=== PATIENT | female | born 1950 | race Caucasian/White ===

== ENCOUNTER 2024-02-24 14:46 | Emergency (ER) | payer MEDICARE, SELFPAY ==
--- NOTE | ~2024-02-24 | XR_ITS ---
EXAMINATION: [id number] Exam Date/Time: 02/24/2024 15:26 ASSOCIATE PROFESSOR OF PSYCHOLOGY HISTORY: fell this morning hit side of bathtub, pain ant, mid Rt ribs Comparison: None available. RESULT: Lines, tubes, and devices: None. Lungs and pleura: Clear. Cardiothymic silhouette: Stable. Other: No acute upper abdominal finding. Mildly displaced transverse fracture of the right fifth ant erolateral rib. IMPRESSION: No acute cardiopulmonary process. Mildly displaced transverse fracture of the right fifth anterolateral rib. Reviewed, dictated and finalized at location K. CIATE PROFESSOR OF PSYCHOLOGY
[2024-02-24 14:56] VITALS: BP 124/91; PULSE 105; RESP 20; TEMP 36.3; O2SAT 98
--- NOTE | 2024-02-24 15:34 | ED.GENADULT ---
HPI - General Adult General Chief complaint: Fall Stated complaint: FALL/R SIDED PAIN Time Seen by Provider: 02/24/24 15:10 Source: patient, RN notes reviewed and old records reviewed Mode of arrival: ambulatory Limitations: no limitations History of Present Illness HPI narrative: 73 year old female who presents to [facility] with complaints of getting foot caught on air vent and fallin in her bathroom at 1100 today and hitting right anterior lateral chest on side of bathtub. Patient reports pain to area on right anterior lateral chest region with no bruising noted but reports increased pain with deep breathing and if sneezes or coughs and with movement of right arm,.Patient reports no pain to right hip or to lower right side of body. MD complaint: right lateral rib pain Onset (ago): day(s) (today at 1100 from fall) Location: chest (right lateral anterior chest) Severity scale (1-10): 5 Quality: aching Treatments prior to arrival: other (muscle relaxer, Ibuprofen and Tylenol) Related Data Home Medications Medication Instructions Recorded Confirmed alprazolam 0.25 mg tablet 0.25 mg PO DIRECTED 02/24/24 02/24/24 cyclobenzaprine 10 mg tablet 10 mg PO HS 02/24/24 02/24/24 fluoxetine 20 mg capsule 20 mg PO DAILY 02/24/24 02/24/24 fluoxetine 40 mg capsule 40 mg PO DAILY 02/24/24 02/24/24 Allergies Allergy/AdvReac Type Severity Reaction Status Date / Time No Known Allergies Allergy Verified 02/24/24 16:04 Review of Systems Review of Systems: CONSTITUTIONAL: Denies fever, chills, or sweats. EYES: Denies visual changes, redness, or discharge. ENT: Denies rhinorrhea, congestion, sore throat, or otalgia. CARDIOVASCULAR: Denies chest pain, palpitations, or edema.reports pain to right anterior lateral chest region from fall RESPIRATORY: Denies cough or dyspnea. GASTROINTESTINAL: Denies abdominal pain, nausea, vomiting, or diarrhea. GENITOURINARY: Denies dysuria or hematuria. SKIN: Denies rash or itching. MUSCULOSKELETAL: Denies back pain, joint pain, or myalgia. NEUROLOGIC: Denies headache, numbness, or weakness. PSYCHIATRIC: Positive for history of anxiety or depression. All systems reviewed & are unremarkable except as noted in HPI and below PMFSH Past Medical History Medical History (Updated 02/26/24 @ 11:25 by Sherry Bullard NP) Anxiety and depression Social History Social History (Updated 02/26/24 @ 11:19 by Sherry Bullard NP) Smoking status: Never smoker Alcohol intake: current Alcohol use details: social Substance use type: does not use Gender identity (if verbalized by the patient): Female Comments At time of signature, agree with nursing past medical, surgical, social and family history. There is no relevant family history pertinent to the presenting complaint Exam Narrative: GENERAL: Well-appearing, well-nourished, and in some acute distress related to pain to anterior lateral chest from fall. HEAD: Normocephalic, atraumatic. EYES: PERRLA and EOMI. ENT: Nares clear, no rhinorrhea or epistaxis. Mucous membranes moist. NECK: Supple.no lymphadenopathy CHEST: Clear to auscultation. No respiratory distress.[id number]% on room air,pain to lateral anterior right chest from fall. HEART: Regular rate and rhythm. No murmur heard. Normal peripheral pulses. ABDOMEN: Soft, nontender, nondistended, normal active bowel sounds. EXTREMITIES: Normal range of motion.bilateral foot edema. SKIN: Warm, dry, no rash. NEURO: No focal deficits. Alert and oriented x3. Course Course Emergency Course: Patient is aware of diagnosis, understands and agrees to treatment plan.? Anticipatory guidance given.? Patient agrees to follow-up as directed and is aware of reasons to seek care at the emergency department. Portions of this record may have been created with voice recognition software Level of Care: Express Care Visit Vital Signs Vital signs: Vital Signs Temperature 36.3 C L 02/24/24 14:56 Pulse Rate 105 H 02/24/24 14:56 Respiratory Rate 20 02/24/24 14:56 Blood Pressure 124/91 H 02/24/24 14:56 Pulse Oximetry 98 02/24/24 14:56 Oxygen Delivery Room Air 02/24/24 14:56 Temperature 36.3 C L 02/24/24 14:56 Pulse Rate 105 H 02/24/24 14:56 Respiratory Rate 20 02/24/24 14:56 Blood Pressure 124/91 H 02/24/24 14:56 Pulse Oximetry 98 02/24/24 14:56 Oxygen Delivery Room Air 02/24/24 14:56 Reviewed Medical Decision Making MDM Narrative Medical decision making narrative: Exam findings and imaging show no acute concerns or changes; patient is non-toxic appearing and is in no distress.? Patient is appropriate for outpatient treatment and follow-up Differential Diagnosis Differential Diagnosis: fall hitting right chest region, contusion to ribs, fracture right rib. Medical Records Medical records reviewed: Yes I reviewed the external patient's medical records. Vital Signs Vital Signs: Vital Signs Temperature 36.3 C L 02/24/24 14:56 Pulse Rate 105 H 02/24/24 14:56 Respiratory Rate 20 02/24/24 14:56 Blood Pressure 124/91 H 02/24/24 14:56 Pulse Oximetry 98 02/24/24 14:56 Oxygen Delivery Room Air 02/24/24 14:56 Temperature 36.3 C L 02/24/24 14:56 Pulse Rate 105 H 02/24/24 14:56 Respiratory Rate 20 02/24/24 14:56 Blood Pressure 124/91 H 02/24/24 14:56 Pulse Oximetry 98 02/24/24 14:56 Oxygen Delivery Room Air 02/24/24 14:56 Imaging Data Attestation: I personally reviewed and interpreted this imaging study as follows: My impression: mildly displaced transverse fracture right anterolateral 5th rib Radiologist's impression: Express [facility] [place] [address] XRay Report Signed Patient: Maris Lennon : 1950 MR#: [id number] Age: 73 Acct:[id number] Loc: [facility] ADM Date: 02/24/24Attending Dr: Ordering Physician: Sherry Bullard APRN Date of Service: 02/24/24 Procedure(s): XR ribs RT w PA CXR Accession Number(s): [id number] cc: Talat,Sherry Lewis APRN~ EXAMINATION: [id number] Exam Date/Time: 02/24/2024 15:26 EXHIBITIONS AND COLLECTIONS MANAGER HISTORY: fell this morning hit side of bathtub, pain ant, mid Rt ribs Comparison: None available. RESULT: Lines, tubes, and devices: None. Lungs and pleura: Clear. Cardiothymic silhouette: Stable. Other: No acute upper abdominal finding. Mildly displaced transverse fracture of the right fifth anterolateral rib. IMPRESSION: No acute cardiopulmonary process. Mildly displaced transverse fracture of the right fifth anterolateral rib. Reviewed, dictated and finalized at location K. BITIONS AND COLLECTIONS MANAGER Dictated By: Win Meek MD 02/24/24 1537 Signed By: <Electronically signed by Win Meek MD in OV> Critical Care Time Critical Care Time Critical Care Time: No Discharge Plan Discharge Clinical Impression: Right rib fracture Patient Disposition: Home, Self-Care Condition: Stable Instructions: Antibiotic Form Additional Instructions: Ice and heat to the area for 20-30 minutes Caution with lifting, bending, stooping, twisting Avoid pushing, pulling take muscle relaxants as directed--caution drowsiness and no driving or alcohol Anti-inflammatory medicine as directed--take with food He may take the muscle relaxant and anti-inflammatory at the same time Pain medicine as directed for severe pain--caution drowsiness-no driving or alcohol. If this medicine is a narcotic, you can become constipated. He may want to start a laxative right away. Follow-up with your PCP if not improving in 5-7 days If your symptoms persist, change or worsen significantly before you can contact your personal physician then please, without delay, go to the emergency department for further evaluation. Follow-up with PCP in 7-10 days or sooner if needed Follow up with PCP soon in regards to your blood pressure which is elevated above threshold for referral. Blood pressure above 120/80 may indicate pre-hypertension. 124/91 124/ Prescriptions: New acetaminophen-codeine 300-30 mg tablet 1 tablet PO Q6H PRN (Reason: pain) Qty: 10 0RF No Action fluoxetine 40 mg capsule 40 mg PO DAILY cyclobenzaprine 10 mg tablet 10 mg PO HS alprazolam 0.25 mg tablet 0.25 mg PO DIRECTED fluoxetine 20 mg capsule 20 mg PO DAILY Follow-up/Referrals: Talat,Collin [Other] Stand Alone Forms: Work/School Release IP Time of Disposition: 16:07 Quality Fenwick Coma Scale Eyes: Open Verbal: Oriented and Alert Motor: Follows Commands Cristina Coma Total Score: 15
== END 2024-02-24 16:14 | disposition home or self-care (01) ==
PROVIDERS: Emergency Provider Registered Nurse; PCP Physician Assistant
DX: S22.31XA Fracture of one rib, right side, initial encounter for closed fracture (principal); Z79.899 Other long term (current) drug therapy; W18.31XA Fall on same level due to stepping on an object, initial encounter
CPT/HCPCS: 71101; 99203; G0463

== ENCOUNTER 2024-03-16 14:58 | Outpatient (CLI) | payer MEDICARE, SELFPAY ==
--- NOTE | ~2024-03-16 | XR_ITS ---
[id number] Ordering provider: Camron Gilliland, PA History: . Fracture of one rib, right side, initial encounter for close . Comparison: None FINDINGS: BONES: No acute right rib fracture or fracture of the visualized osseous structures. LUNGS: No effusions or infiltrates. No pneumothorax. SOFT TISSUES: Normal. IMPRESSION: No right rib fracture . Reviewed, dictated and finalized at location A. INJECTOR AND APPLICATOR IMPRESSION: No right rib fracture .
== END 2024-03-16 14:59 | disposition home or self-care (01) ==
LOC: MICIMG 15:00
PROVIDERS: PCP Physician Assistant; Visit Provider Physician Assistant
DX: S22.31XA Fracture of one rib, right side, initial encounter for closed fracture (principal); X58.XXXA Exposure to other specified factors, initial encounter
CPT/HCPCS: 71101

== ENCOUNTER 2024-05-25 12:55 | Outpatient (CLI) | payer MEDICARE, SELFPAY ==
[2024-05-25 13:58] LABS: Alanine Aminotransferase 26 U/L (6-35); Albumin Level 3.9 g/dL (3.5-5.1); Alkaline Phosphatase 81 U/L (38-126); Amylase 59 U/L (30-110); Aspartate Amino Transferase 20 U/L (14-36); Bilirubin,Total 0.5 mg/dL (0.2-1.3); Lipase 95 U/L (23-300)
--- OUTSIDE RECORDS SUMMARY | 2024-05-25 14:49 | XMS_ITS | CONTINUITY OF CARE DOCUMENT ---
Author Name stephane calderón Address Unknown Organization [facility] Address [address] [address] [facility] [address] [place] [address] Phone [phone] Care Team Providers Care Graduate Internship Name Role Phone Jose BALBUENA, Jayy Unavailable CHARAN BALBUENA, RUNDA Unavailable CHARAN BALBUENA, RUNDA Unavailable [phone] PROBLEMS Condition Status Date Provider Notes HTN essential active Jayy Garcia MD CAD- normal echo and stress test 08/16 active 6 Jayy Garcia MD Former smoker active Jayy Garcia MD Shortness of breath- Normal ech, normal stress nuc 08/16 active Jayy Garcia MD COPD active Jayy Garcia MD Obesity active Jayy Garcia MD Osteoporosis active Jayy Garcia MD Leg edema- b/l venous insufficiency 08/16 active 08/11 Jayy Garcia MD ENCOUNTERS Date Type Provider Location Encounter Diag nosis - In-person encounter Office Visit Jayy Gacria MD [facility] - In-person encounter Office Visit Jayy Garcia MD [facility] - In-person encounter Office Visit Jayy Garcia MD [facility] CAD- normal echo and stress test 08/16Leg edema- b/l venous insufficiency 08/16 - In-person encounter Office Visit Jayy Garcia MD [facility] Former smokerShortness of breath- Normal ech, normal stress nuc 08/16COPDObesityOsteopor osisLeg edema- b/l venous insufficiency 08/16 VITAL SIGNS Date Observation Value Provider Body Mass Index (Ratio) 38.12 kg/m2 Pedro Garcia MD blood pressure, diastolic 85 mm[Hg] [facility] blood pressure, systolic 138 mm[Hg] [facility] oxygen saturation, oximetry 95 % [facility] pulse rate 96 /min [facility] respiratory rate E&M 16 /min Meme D adilene weight E&M 236.2 [lb_av] [facility] height E&M 66 [in_i] [facility] Body Mass Index (Ratio) 37.93 kg/m2 Pedro Garcia MD blood pressure, cuff size regular Cy adria [place] blood pressure, diastolic 80 mm[Hg] Cy adria [place] blood pressure, systolic 122 mm[Hg] Breana natalykimberly [place] oxygen saturation, oximetry 97 % Kenia [place] respiratory rate E&M 16 /min Keniarafita [place] pulse rate 70 /min Kenia Chonbel l weight E&M 235 [lb_av] Kenia Campbel l height E&M 66 [in_i] Kenia Campbel l Body Mass Index (Ratio) 37.60 kg/m2 Pedro Garcia MD blood pressure, diastolic 80 mm[Hg] Sulaiman Salas blood pressure, systolic 120 mm[Hg] Becca Salas oxygen saturation, oximetry 98 % [facility] E&[facility] 16 /min Tunde Salas pulse rate 82 /min Elsinore Salas weight E&M 233 [lb_av] Elsinore Salas height E&M 66 [in_i] Elsinore Birchleaf Body Mass Index (Ratio) 37.60 kg/m2 Pedro Garcia MD blood pressure, diastolic 86 mm[Hg] Sulaiman lea Salas blood pressure, systolic 122 mm[Hg] Becca last [place] oxygen saturation, oximetry 96 % Tunde [place] respiratory rate E&M 16 /min Tunde [place] pulse rate 83 /min Tunde [place] weight E&M 233 [lb_av] Tunde [place] height E&M 66 [in_i] Tunde [place]leaf blood pressure, resting Yes Alessia Salas ALLERGIES No Known Drug Allergies HISTORY OF MEDICATION USE Medication Status Instructions Dates Provider Indications Com ments FLUOXETINE HCL 40 MG ORAL CAPSULE active TK 1 C PO D 7 Tunde Salas #90, 90 days supply, Prescribed by ANALILIA NELSON, Filled 11/28/2017 ASPIRIN ADULT LOW DOSE 81 MG ORAL TABLET DELAYED RELEASE active One Tab By Mouth Daily 4 Jayy Garcia MD ZYRTEC ALLERGY 10 MG ORAL TABLET active take 1 tab once daily 4 Tunde Salas NEXIUM 20 MG ORAL CAPSULE DELAYED RELEASE active take 1 caps once daily 4 Tunde Salas LISINOPRIL-HYDR OCHLOROTHIAZIDE 20-25 MG ORAL TABLET active TK 1 T PO QD 7 Elsinore Salas #90, 90 days supply, Prescribed by ANALILIA NELSON, Filled 11/28/2017 ALPRAZOLAM 0.25 MG ORAL TABLET active TK 1 T PO BID PRN 9 Tunde Salas #60, 30 days supply, Prescribed by ANALILIA NELSON, Filled 06/16/2018 IBANDRONATE SODIUM 150 MG ORAL TABLET active TK 1 T PO Q MONTH 6 Elsinore Salas #3, 90 days supply, Prescribed by ANALILIA NELSON, Filled 07/24/2018 PROAIR HFA 108 (90 BASE) MCG/ACT INHALATION AEROSOL SOLUTION active INL 2 PFS PO QID PRN 9 Elsinore Salas #8.5, 25 days supply, Prescribed by ANALILIA NELSON, Kim 07/29/2018 SOCIAL HISTORY Date Observation Value Provider social history E&M S moking History: Destiney stoddard is a former smoker. Alex Mcgrathandrez smoking, year quit 2018 Meme Orosco is number of years as a smoker 50 a Meme De Jesus smoking history, total pack/day 1 Meme De Jesus cigarette use yes Meme De Jesus smoking status Former smoker Meme De Jesus social history reviewed E&M revi ewed - no changes required Alex Palmermackenzie social history E&M S moking History: Destiney stoddard is a former smoker. Jayy Garcia MD social history reviewed E&M revi ewed - no changes required Jayy Garcia MD smoking, year quit 2018 Kenia hernadez number of years as a smoker 50 a Kenia Shemar smoking history, total pack/day 1 Kenia Shemar cigarette use yes Kenia Hilario aguila smoking status Former smoker Kenia Chon trent social history reviewed E&M revi ewed - no changes required Jayy Garcia MD smoking, year quit 2018 Elsinore I ngram number of years as a smoker 50 a Elsinore Salas smoking history, total pack/day 1 Tunde Salas cigarette use yes Tunde Salas smoking status Former smoker Tunde Ingr am social history E&M S moking History: Destiney stoddard is a former smoker. Jayy Garcia MD social history reviewed E&M revi ewed - no changes required Jayy Garcia MD smoking, year quit 2018 Tunde I ngram number of years as a smoker 50 a Elsinore Salas smoking history, total pack/day 1 Elsinore Salas cigarette use yes Tunde Salas number of grandchildren Jayy Salas smoking status Former smoker Tunde Rausch am FUNCTIONAL STATUS Date Observation Value Provider HRA, CV Assess/Plan, Angina (inactive) Management Plan continue current therapy Alex Ahmedzai HRA, CV Assess/Plan, Angina (inactive) Management Plan continue current therapy Jayy Garcia MD HRA, CV Assess/Plan, Angina (inactive) Management Plan continue current therapy Jayy Garcia MD FAMILY HISTORY Family Member Condition First Degree Blood Relative No Known Rel ative INSURANCE PROVIDERS Payer name Policy type / Coverage type Bernice red democrat ID AARP MEDICARE ADVANTAGE HMO-POS HMO [id number] ADVANCE DIRECTIVES Name Date DISCUSSED - NO DECISION MADE TREATMENT PLAN Date Name Performer [id number],S, Mendy Leavitt obsmeyer [id number],S, Mendy Leavitt obsmeyer [id number],S, Mendy Leavitt obsmeyer [id number],S, Mendy Tree obsmeyer [id number],B, Alex Ahmedza i [id number],S, Alex Ahmedza i [id number],S, Alex Ahmedza i [id number],S, Alex Ahmedza i [id number],S, Alex Ahmedza i Telehealth Mendy Jacobsm eyer Telehealth Mendy Jacobsm eyer Telehealth Mendy Jacobsm eyer Telehealth Mendy Jacobsm eyer Cardiology Alex Ahmedzai Cardiology Alex Ahmedzai Cardiology Alex Ahmedzai Cardiology Alex Ahmedzai Cardiology Alex Ahmedzai Cardiology follow up Jayy sierra MD Cardiology follow up Jayy sierra MD Cardiology follow up Jayy sierra MD Cardiology follow up Jayy sierra MD Cardiology follow up Jayy sierra MD Cardiology Jayy Garcia MD Cardiology Jayy Garcia MD Cardiology Jayy Garcia MD Cardiology Jayy Garcia MD Cardiology Jayy Garcia MD Cardiology Jayy Garcia MD Cardiology Jayy Garcia MD Cardiology Jayy Garcia MD Cardiology Jayy Garcia MD Cardiology Jayy Garcia MD Cardiology: B P today: 122/86 Jayy Garcia MD Cardiology Jayy Garcia MD Date Name Complete Echo DLCO - 65571 FRC - 01778 FVC - 78322 Venous Doppler Bilat eral LE - Reflux Stress Regadenoson Complete Echo HISTORY OF PROCEDURES Procedure Date Procedure Name Provider Procedure Notes S tatus EKG Jayy Garcia MD completed Regadenoson, 4 units Jayy Garcia MD completed Cardiolite, 2 units Jayy Garcia MD completed SPECT Images Umer Pierson MD compl eted Stress EKG Kalia Walker MD complete d EKG Jayy Garcia MD completed
--- OUTSIDE RECORDS SUMMARY | 2024-05-25 14:49 | XMS_ITS | Clinical Summary ---
Author Organization [facility] Address [address] [address] Phone Care Team Providers Care Egg Trayer Name Role Phone Melany Mathur MD Primary Care Provider [phone] Allergies No known active allergies Medications Medication Sig Dispensed Refills Start Date End Date Status cetirizine (ZyrTEC ALLERGY) 10 MG tablet one tab daily 0 07/30/2017 Active esomeprazole (NEXIUM 24HR CLEAR MINIS) [address] capsule one tab daily 0 07/30/2017 Active lisinopril-hydroCHLORO thiazide (PRINZIDE,ZESTORETIC) 20-25 MG per tablet 1 tab by mouth daily 0 07/30/2017 Active ALPRAZolam (XANAX) 0.25 MG tablet 1 tab by mouth twice daily as needed 0 07/30/2017 Active FLUoxetine (PROzac) 40 MG capsule TK 1 C PO D 04/14/2019 Active aspirin 81 MG tablet Take 81 mg by mouth 1 (one) time each day Active Active Problems Problem Noted Date Diagnosed Date Chronic kidney disease stage 2 05/31/2020 Obesity associated disorder 05/31/2020 Essential (primary) hypertension 07/30/2017 Resolved Problems Problem Noted Date Diagnosed Date Resolved Date Edema of lower extremity 05/31/202005/2022 Other specified abnormal fin ding of blood chemistry 12/30/2017 05/31/2020 Other microscopic hematuria 12/30/2017 05/31/2020 Social History Tobacco Use Types Packs/Day Years Used Date Smoking Tobacco: Former Smokeless Tobacco: Never Tobacco Cessation:Counseling Given: Not Answered Alcohol Use Standard Drinks/Week Comments Yes 0 (1 standard drink = 0.6 oz pur e alcohol) occasionally Sex and Gender Information Value Date Recorded Sex Assigned at Not on file Gender Identity Not on file Sexual Orientation Not on file Last Filed Vital Signs Vital Sign Reading Time Taken Comments Blood Pressure 121/90 05/14/2022 4:25 PM PROJECT DESIGN ENGINEER Pulse 84 11/07/2020 12:10 PM CDT Temperature - - Respiratory Rate - - Oxygen Saturation - - Inhaled Oxygen Concentration - - Weight 102 kg (225 lb) 05/14/2022 4:25 PM PROJECT DESIGN ENGINEER Height 167.6 cm (5' 6 ) 05/14/2022 10:41 AM PROJECT DESIGN ENGINEER Body Mass Index 36.32 05/14/2022 10:41 AM PROJECT DESIGN ENGINEER Plan of Treatment Health Maintenance Due Date Last Done Comments Pneumococcal PPSV23/PCV13 65 + Years / High and Highest Risk (2 of 4 - PPSV23 or PCV20) 07/16/2018 05/21/2018 COVID-19 Vaccine ( season) 11/30/202311/2020, 06/02/2020 Influenza Vaccine (#1) 2023 Care Teams Egg Trayer Relationship Specialty Start Date End Date Melany Mathur MD [facility] [place] [address] PCP - General 07/07/18
--- OUTSIDE RECORDS SUMMARY | 2024-05-25 14:49 | XMS_ITS | Patient Health Summary ---
Author Organization [facility] Address [address] [place] [address] Care Team Providers Care Corn Popper Name Role Phone Melany Mathur MD Primary Care Provider Note from [facility],non-owned Affiliates and Associated Physician Practices is amultiple site organization consisting of ambulatory clinics and hospital sitesin [place], [place], [place] and [place]. This disclosure is being madepursuant to the Care Everywhere program and may not contain all information available regarding this patient. Last updated 17.[facility] Allergies No known active allergies Medications * Be aware that medications may not be up to date on this document. Alwaysverify current medications with the patient. * ALPRAZolam (XANAX) 0.25 MG tablet(Started 09/28/2020) Take 0.25 mg by mouth 2 times daily as needed * lisinopril-hydroCHLOROthiazide (PRINZIDE; ZESTORETIC) 20-25 MG tablet(Started 10/30/2020) Take 1 tablet by mouth once daily * FLUoxetine (PROZAC) 40 MG capsule(Started 02/03/2020) TK 1 C PO D * Esomeprazole Magnesium (NEXIUM PO) Take by mouth once daily * Cetirizine HCl (ZYRTEC ALLERGY PO) Take by mouth once daily * aspirin buffered (BUFFERIN LOW DOSE) 81 MG tablet Take 81 mg by mouth Active Problems Problem Noted Date Diagnosed Date Hepatitis C antibody test positive 11/21/2020 Edema of lower extremity 05/31/2020 Stage 2 chronic kidney disease 05/31/2020 Chronic obstructive pulmonary disease 08/11/2018 Former smoker 08/11/2018 Osteoporosis 08/11/2018 Shortness of breath 08/11/2018 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 Essential (primary) hypertension 07/30/2017 Immunizations * Covid Maria Ma primary monovalent 12+ yr 0.5mL(Given 07/07/2020, 06/02/2020) * PNEUMOCOCCAL PPSV23(Given 01/15/2020) * Pneumococcal Pcv13 Conj(Given 05/21/2018) * Zoster Hzv Vacc Recombinant Inj Im(Given 04/21/2020, 01/15/2020) Social History Tobacco Use Types Packs/Day Years Used Date Smoking Tobacco: Former Cigarettes Q uit: 05/29/2018 Smokeless Tobacco: Never Alcohol Use Standard Drinks/Week Comments Yes 0 (1 standard drink = 0.6 oz pur e alcohol) on occasion Sex and Gender Information Value Date Recorded Sex Assigned at Not on file Gender Identity Not on file Sexual Orientation Not on file Last Filed Vital Signs Vital Sign Reading Time Taken Comments Blood Pressure 143/87 11/21/2020 2:51 PM CDT Pulse 96 11/21/2020 2:51 PM CDT Temperature - - Respiratory Rate - - Oxygen Saturation 98% 11/21/2020 2:51 PM CDT Inhaled Oxygen Concentration - - Weight 105.1 kg (231 lb 12.8 oz) 11/21/2020 2:51 PM CDT Height 167.6 cm (5' 6 ) 11/21/2020 2:51 PM CDT Body Mass Index 37.41 11/21/2020 2:51 PM CDT Procedures * HEPATITIS B SURFACE ANTIBODY(Performed 11/21/2020) Performed for Chronic hepatitis C without hepatic coma (HCC) * HEPATITIS B SURFACE ANTIGEN W RFLX CONFIRMATION(Performed 11/21/2020) Performed for Chronic hepatitis C without hepatic coma (HCC) * HEPATITIS B CORE ANTIBODY TOTAL(Performed 11/21/2020) Performed for Chronic hepatitis C without hepatic coma (HCC) * HEPATITIS C RNA QUANTITATIVE(Performed 11/21/2020) Performed for Chronic hepatitis C without hepatic coma (HCC) * HEPATITIS C GENOTYPE(Performed 11/21/2020) Performed for Chronic hepatitis C without hepatic coma (HCC) * PT-INR [facility](Performed 11/21/2020) Performed for Chronic hepatitis C without hepatic coma (HCC) * COMPREHENSIVE METABOLIC PANEL(Performed 11/21/2020) Performed for Chronic hepatitis C without hepatic coma (HCC) * CBC W AUTO DIFFERENTIAL(Performed 11/21/2020) Performed for Chronic hepatitis C without hepatic coma (HCC) Results * PT-INR [facility] (11/21/2020 4:59 PM CDT) Pathologist [facility] PT 12.5 12.1 - 14.8 Seconds 11/21/2020 5:54 PM CDT [facility] INR 1.0 See Comment 11/21/2020 5:54 PM CDT [facility] Comment:The suggested therap eutic range for standard coumadin (warfarin) therapy is an INR of 2.0-3.0. For high-risk patients (Mechanical Mitral Valve Prosthesis, etc.), the suggested prophylactic therapeutic range is an INR of 2.5-3.5. Blood BLOOD SPECIMEN / Unknown Lab Venipuncture / Unknown 11/21/2020 4:59 PM CDT 11/21/2020 5:34 PM CDT Dipika Staton INTERNATIONAL LOGISTICS MANAGER-FIELD PARTY MANAGER LAB - COAGUL ATION ORDERABLES [facility] [address] [place] [id number], [facility] [phone] * HEPATITIS C GENOTYPE (11/21/2020 4:59 PM CDT) Pathologist [facility] Hepatitis C Genotype Indeterminate 11/27/2020 7:33 AM CDT [facility] ([facility]) Comment: Hepatitis C GENOTYPING IS INDETERMINATE. This test may be unsuccessful if the HCV RNA viral load is less than log 3.6 or 4000 IU per mL. Repeat testing may be appropriate if and when the viral load becomes greater than log 3.6 or 4000 IU/mL. In addition to low viral load, other conditions, such as PCR inhibitors, viral genetic variation, etc., may cause RT-PCR failure resulting in an indeterminate result. INTERPRETIVE INFORMATION: Hepatitis C Genotyping Hepatitis C Viral RNA is tested using reverse cd mixer helper polymerase chain reaction (RT-PCR) to amplify a specific portion of the 5' untranslated region (5' UTR) of the viral genome. The amplified nucleic acid is sequenced bi-directionally using dye-terminator chemistry ([employer]). Sequencing data is compared to a database of characterized sequences. Isolates of hepatitis C virus are grouped into six major genotypes (1-6). These genotypes are subtyped according to sequence characteristics. Due to high conservation of the 5' un-translated region of the HCV genome, this test has limitations in differentiating subtype 1a from 1b. Therefore, these subtypes will be reported as 1a or 1b. In rare instances, Type 6 virus may be misclassified as Type 1. This test was developed and its performance characteristics determined by [employer]. It has not been cleared or approved by the US Food and Drug Administration. This test was performed in a CLIA certified laboratory and is intended for clinical purposes. Performed By: [email or web address] [address] [place], [place] [id number] Ems Instructor: Sushma Ramirez MD Blood BLOOD SPECIMEN / Unknown Lab Venipuncture / Unknown 11/21/2020 4:59 PM CDT 11/21/2020 5:34 PM CDT Dipika Staton INTERNATIONAL LOGISTICS MANAGER-FIELD PARTY MANAGER LAB - CHEMIS TRY ORDERABLES [facility] ([facility]) [address] [place] [address], [facility] * HEPATITIS C RNA QUANTITATIVE (11/21/2020 4:59 PM CDT) [facility] Hepatitis C RNA PCR, Interp Not detected Not detected 11/23/2020 11:[address] [facility] Blood BLOOD SPECIMEN / Unknown Lab Venipuncture / Unknown 11/21/2020 4:59 PM CDT 11/21/2020 5:[address] [facility] - 11/23/2020 11:09 AM CDT The Hepatitis C viral (HCV) RNA analysis utilized a serum sample, real-time reverse cd mixer helper PCR, and is reported as Not Detected, Detected (<12 IU/mL), Quantity (IU/mL) or >30,000,000 IU/mL. The limit of quantitation of the assay is 12 IU/mL (100% of samples with this HCV RNA level were detected). The linear range is from 12 IU/mL to 30,000,000 IU/mL. Values less than 12 IU/mL are reported as Detected (<12 IU/mL). Values greater than 30,000,000 IU/mL are reported as >30,000,000 IU/mL. The detection/quantitation of HCV RNA in serum is based on the isolation of HCV RNA with reverse cd mixer helper of genomic HCV RNA followed by real-time PCR in the presence of an unrelated RNA internal control. The internal control ensures that RNA is isolated, and that no general significant inhibitors of the RT-PCR process are present. The analysis was performed using a U.S. FDA approved test methodology ([employer] Real Time HCV). Dipika Staton INTERNATIONAL LOGISTICS MANAGER-FIELD PARTY MANAGER LAB - CHEMIS TRY ORDERABLES [facility] [address] [place] [address], [facility] [phone] * CBC WITH DIFFERENTIAL (11/21/2020 4:59 PM CDT) WBC 8.3 3.5 - 10.5 10 3/uL 11/21/2020 5:50 PM CDT [facility] RBC 5.17 3.80 - 5.20 10 6/uL 11/21/2020 5:50 PM CDT [facility] Hemoglobin 13.9 12.0 - 15.6 g/dL 11/21/2020 5:50 PM CDT [facility] Hematocrit 44.7 35.0 - 45.0 % 11/21/2020 5:50 PM CDT [facility] MCV 86.5 80.7 - 98.3 fL 11/21/2020 5:50 PM CDT [facility] MCH 26.9 26.7 - 34.0 pg 11/21/2020 5:50 PM CDT [facility] MCHC 31.1 30.8 - 35.9 g/dL 11/21/2020 5:50 PM T [facility] Platelet Count 299 150 - 400 10 3/uL 11/21/2020 5:50 PM CDT [facility] RDW-SD 41.8 36.0 - 50.0 fL 11/21/2020 5:50 PM CDT [facility] RDW-CV 13.2 11.2 - 14.8 % 11/21/2020 5:50 PM [facility] MPV 11.6 9.4 - 12.9 fL 11/21/2020 5:50 PM [facility] nRBC Absolute 0.00 0 10 3/uL 11/21/2020 5:50 PM [facility] nRBC Auto 0.0 0 /100 WBC 11/21/2020 5:50 PM [facility] Neutrophils % 51.1 35.0 - 70.0 % 11/21/2020 5:50 PM [facility] Lymphocytes % 38.4 20.0 - 43.0 % 11/21/2020 5:50 PM [facility] Monocytes % 7.4 5.0 - 13.0 % 11/21/2020 5:50 PM [facility] Eosinophils % 2.1 0.0 - 6.0 % 11/21/2020 5:50 PM [facility] Basophil % 0.8 0.0 - 2.0 % 11/21/2020 5:50 PM [facility] Neutrophils Absolute 4.2 1.6 - 7.0 10 3/uL 11/21/2020 5:50 PM [facility] Lymphocyte Absolute 3.2 1.1 - 3.9 10 3/uL 11/21/2020 5:50 PM [facility] Monocytes Absolute 0.61 0.26 - 1.07 10 3/uL 11/21/2020 5:50 PM [facility] Eosinophils Absolute 0.17 0.00 - 0.47 10 3/uL 11/21/2020 5:50 PM [facility] Basophils Absolute 0.07 0.00 - 0.08 10 3/uL 11/21/2020 5:50 PM [facility] Immature Granulocytes % 0.2 0.0 - 1.0 % 11/21/2020 5:50 PM [facility] Immature Granulocytes Absolute 0.02 11/21/2020 5:50 PM [facility] Blood BLOOD SPECIMEN / Unknown Lab Venipuncture / Unknown 11/21/2020 4:59 PM CDT 11/21/2020 5:42 PM CDT Dipika Staton INTERNATIONAL LOGISTICS MANAGER-FIELD PARTY MANAGER LAB - HEMATO LOGY ORDERABLES [facility] [address] [place] [address], [facility] [phone] * (ABNORMAL) COMPREHENSIVE METABOLIC PANEL (11/21/2020 4:59 PM CDT) BUN 17 7 - 26 mg/dL 11/21/2020 6:12 PM [facility] Creatinine 1.23(H) 0.56 - 0.96 mg/dL 11/21/2020 6:12 PM [facility] Sodium 141 136 - 145 mmol/L 11/21/2020 6:12 PM [facility] Potassium 4.2 3.5 - 4.5 mmol/L 11/21/2020 6:12 PM [facility] Chloride 102 98 - 107 mmol/L 11/21/2020 6:12 PM [facility] CO2 27 22 - 29 mmol/L 11/21/2020 6:12 PM [facility] Glucose 82 70 - 115 mg/dL 11/21/2020 6:12 PM [facility] Calcium 9.9 8.4 - 10.2 mg/dL 11/21/2020 6:12 PM [facility] Protein Total 7.5 6.0 - 8.3 g/dL 11/21/2020 6:12 PM [facility] Albumin 3.9 3.4 - 5.0 g/dL 11/21/2020 6:12 PM [facility] Bilirubin Total 0.2 0.2 - 1.2 mg/dL 11/21/2020 6:12 PM [facility] Alkaline Phosphatase 93 40 - 150 U/L 11/21/2020 6:12 PM [facility] ALT 17 5 - 55 U/L 11/21/2020 6:12 PM [facility] AST 17 5 - 34 U/L 11/21/2020 6:12 PM [facility] Anion Gap 16 8 - 18 11/21/2020 6:12 PM [facility] BUN/Creatinine Ratio 14 7 - 23 11/21/2020 6:12 PM T [facility] Osmolality Calculated 293 270 - 300 mOsm/kg 11/21/2020 6:12 PM T [facility] Albumin/Globulin Ratio 1.1 1.1 - 2.3 11/21/2020 6:12 PM T [facility] eGFR by CKD-EPI 45(L) >=90 mL/min/1.7 3 m2 11/21/2020 6:12 PM CDT [facility] Blood BLOOD SPECIMEN / Unknown Lab Venipuncture / Unknown 11/21/2020 4:59 PM CDT 11/21/2020 5:41 PM CDT Dipika Staton INTERNATIONAL LOGISTICS MANAGER-FIELD PARTY MANAGER LAB - CHEMIS TRY ORDERABLES Performing Organization Address City/[facility]/ZIP Co de Phone Number [address] [address], [place] [phone] * HEPATITIS B SURFACE ANTIBODY (11/21/2020 4:59 PM CDT) Hepatitis B Virus Surface Antibody Non-react fariba Non-react fariba 11/21/2020 6:52 PM CDT [facility] Comment: < 8 mIU/mL Hepatitis B surface Antibody (HBsAb). Nonreactive for HBsAb - individual is considered not immune to Hepatitis B Virus infection. Hepatitis B Surface Antibody Quantitative 2.1 <8.0 mIU/mL 11/21/2020 6:52 PM T [facility] Comment: Hepatitis B Surface Antibody Numeric Result Interpretation: Nonreactive: <8.0 mIU/mL Indeterminate: 8.0 - 12.0 mIU/mL Reactive: >12.0 mIU/mL Blood BLOOD SPECIMEN / Unknown Lab Venipuncture / Unknown 11/21/2020 4:59 PM CDT 11/21/2020 5:34 PM CDT Dipika Staton INTERNATIONAL LOGISTICS MANAGER-FIELD PARTY MANAGER LAB - CHEMIS TRY ORDERABLES Performing Organization Address City/[facility]/ZIP Co de Phone Number [address] [address], [place] [phone] * HEPATITIS B CORE ANTIBODY (11/21/2020 4:59 PM CDT) HBc Antibody Total Non-reacti ve Non-reacti ve 11/21/2020 6:52 PM CDT [facility] Blood BLOOD SPECIMEN / Unknown Lab Venipuncture / Unknown 11/21/2020 4:59 PM CDT 11/21/2020 5:34 PM CDT Dipika Staton INTERNATIONAL LOGISTICS MANAGER-FIELD PARTY MANAGER LAB - CHEMIS TRY ORDERABLES [address] [address], [facility] [phone] * HEPATITIS B SURFACE ANTIGEN W RFLX CONFIRMATION (11/21/2020 4:59 PM CDT) Hepatitis B Virus Surface Antigen Non-reacti ve Non-reacti ve 11/21/2020 6:52 PM CDT [facility] Blood BLOOD SPECIMEN / Unknown Lab Venipuncture / Unknown 11/21/2020 4:59 PM CDT 11/21/2020 5:34 PM CDT Dipika Staton INTERNATIONAL LOGISTICS MANAGER-FIELD PARTY MANAGER LAB - CHEMIS TRY ORDERABLES [address] [address], [place] [phone] Care Teams Corn Popper Relationship Specialty Start Date End Date Melany Mathur MD [facility] [place] [id number] PCP - General 11/20/20
--- OUTSIDE RECORDS SUMMARY | 2024-05-25 14:50 | XMS_ITS | Data Portability ---
Author Organization [facility], Main Office Address [address] [place] [address] Assessment No assessment recorded. Plan of Treatment Reminders Order Date Submit Date Provider Last Modified By Organization Details Last Modified Time Details Appointments Follow Up 15 2024 11:00A XAVI Martin Not available Not available Not available Lab TSH, serum or plasma [address], [address] [place], [address], 09/10/2023 08:55:22 vitamin B12, serum 2023 024 [facility], [address] [place], [address], 09/03/2023 20:58:51 folate, serum [address], [address] [place], [address], 09/10/2023 08:55:22 CMP, serum or plasma 2023 024 [facility], [address] [place], [address], 09/03/2023 20:58:51 vitamin D, 25-hydrox y, total, serum [address], [address] [place], [address], 09/10/2023 08:55:22 T4, free, serum [address], [address] [facility], [place], [address], 09/10/2023 08:55:22 CBC w/ auto diff 2023 024 [facility], [address] [place], [address], 09/03/2023 20:58:52 Referral gastroent erologist referral - Fatty liver .Please eval and treat. Please call patient to schedule an appointme nt. Thank you 2023 024 [place] [address] [facility], [address], [address], [place], [address], 02/23/2024 08:53:00 Procedures None recorded. Surgeries None recorded. Imaging XR, ribs, unilatera l, w/ PA chest - 5th anterolat eral rib fracture . 2023 024 [facility], [address], [facility] [address], [place], [address], 03/16/2024 17:15:37 MAMMO, screening , digital, bilateral [address] [facility], [address] [place] [address] , [place], [address], 11/19/2023 08:44:46 Medication Orders prednison e 10 mg tablet 2024 025 [facility], [address] [place], [address], 04/20/2024 12:52:06 prednison e 20 mg tablet 2023 024 [facility] #88546, [address], [place], [id number], 03/17/2024 12:42:42 cyclobenz aprine 10 mg tablet 2023 024 [facility] #77093, [address], [place], [place], [id number], 01/26/2024 15:06:24 Prozac 40 mg capsule 2023 [facility] #39895, [address], [place], [place], [id number], 01/26/2024 15:08:44 fluoxetin e 20 mg capsule 2023 [facility] #69904, [address], [place], [place], [id number], 01/26/2024 15:08:57 fluoxetin e 60 mg tablet [email or web address] [place] [address] [facility] #42753, [address], [place], [place], [id number], 01/26/2024 15:06:37 Patient TargetsNo targets recorded. Patient Instructions Encounter Date Encounter Id Patient Instructions Last Modified By Organization Details Last Modified Time 09/03/2023 [id number] dementia rating scale-2* [email or web address] Not available 09/03/2023 16:51:00 Timed Up and Go test (TUG)* [email or web address] Not available 09/03/2023 16:51:10 depression screening* [email or web address] Not available 09/03/2023 16:51:14 alcohol misuse* [email or web address] Not available 09/03/2023 16:51:19 multi-dimensiona l health assessment questionnaire* [email or web address] Not available 09/03/2023 16:51:05 Personalized [facility] Plan and Screening Recommendations Advance Directives - Do you have one? Yes Advance Directives - Do we have your advance directive on file in your health record? Primary Prevention/Interven tion (prevents or decreases the chance of common diseases from occurring) Smoking Risk: Non Smoker Alcohol Misuse Screening: Negative Weight: Appropriate Overwei ght continue your current weight loss efforts try to lose 5% of your body weight try to lose 10% of your body weight Physical activity: Need more exercise/physical activity minimum of 10-20 minutes of activity that causes mild breathlessness/day minimum of 20-30 minutes activity that causes mild breathlessness/day Nutrition: Good Average Fall Risk (screened today): Low Intermediate Vaccines Pneumococcal: Ordered Recommended today Recommended today, but you have declined No further needed Influenza: Ordered Recommended today Recommended today, but you have declined Chronic Disease Risks Stroke: Low Risk I have no recommendations Heart Attack: Low risk I have no recommendations Clogging of the Arteries: Low risk I have no recommendations Diabetes: Low Risk I have no recommendations Secondary Prevention/Interven tion (detects treatable diseases before they may cause symptoms, disability, or ) Breast Cancer Screening with mammogram: Your next mammogram: Ordered Recommended today Cervical/Uterine/Ov silvana Cancer Screening: No screening necessary Osteoporosis Screening: No screening necessary Date Screening Last Performed: 12/27/23 Colon Cancer Screening: Colonoscopy Fecal Occult Blood Cologuard (DNA stool test) Date Screening Last Performed: 03/22 Eye Disease Screening: Ordered Recommended today Dementia Risk: Low I have no recommendations Depression Screening: Negative Active diagnosis, Continue current treatment plan [email or web address] Not available 09/02/2023 14:44:15 03/02/2024 [id number] showed her how t o take deep , slow breaths to keep lungs aerated, get BP rechecked . use a heating pad on low 20 min daily [email or web address] Not available 03/13/2024 16:23:07 Reason for Referral Flight Hostess Referral for Steatosis of liver Fatty liver .Please eval and treat. Please call patient to schedule an appointment. Thank you Referring Physician: Camron Gilliland, Family Medicine, Encounter Date: 01/26/2024 Results Created Date Observation Date Name Description Value Unit Range Abnormal Flag Note LastModifiedBy Organization Detail LastModifiedTime 09/22/19 24 09/22/2023 MAMMO , юлия cedeño, jesse al, dominic castillo No observ ation record ed. [email or web address] [facility] [address] [place], [address], 12/12/2023 13:06:36 03/16/20 24 03/16/2024 XR, ribs, unila teral , w/ PA chest No observ ation record ed. [email or web address] [facility] [address], [place], [address], 03/17/2024 12:29:31 04/08/19 25 04/08/2024 XR, chest , 2 view No observ ation record ed. [email or web address], [place], [address], 04/08/2024 11:56:12 Result Notes None recorded. Problems Name Problem SNOMED Code Status Onset Date Resolution Date Notes Provider Name and Address Organization Details Recorded Time Serum creatinine above reference range 636344065 Active Not Available [facility] 3 07:28:34 Gastroesop hageal reflux disease 976242112 Active Not Available [facility] 3 07:28:34 Hypertensi ve disorder 67324966 Active Not Available [facility] 3 07:28:34 Anxiety 73784134 Active Not Available [facility] 3 07:28:34 Hypertensi ve renal failure 91503424 Active Not Available [facility] 3 07:28:34 Essential hypertensi on 10103630 Active Not Available [facility] 3 07:28:34 Mixed anxiety and depressive disorder 559300317 Active 2022 Not Available [facility] 3 07:28:34 Injury of head 49300691 Active 2022 Not Available [facility] 3 07:28:34 Sprain of right wrist 2714491874445 9103 Active 2022 Not Available [facility] 3 07:28:34 Screening for malignant neoplasm of breast Active 2023 XAVI Rock [address], [place], [address] , [employer] 4 15:06:59 Fatigue 76416424 Active 2023 XAVI Rock [address], [place], [address] , [employer] 4 15:10:37 Tendinitis of left wrist region 9863415481517 9100 Active 2023 XAVI Rock [address], [address], [place], [address] , [employer] [facility] [employer] 4 15:14:52 Strain of left trapezius muscle 4046729691517 9109 Active 2023 XAVI Rock [address], [address], [place], [address] , [employer] [facility] 4 15:05:26 Steatosis of liver 896265200 Active 2023 XAVI Rock [address], [address], [place], [address] , [employer] [facility] [employer] [facility] 4 15:13:01 Fracture of right rib 4533609957769 4102 Active 2023 XAVI Rock [address], [place], [address] , [employer] [facility] 4 16:05:03 Gallstone 057340136 Active 2024 XAVI Rock [address], [address], [place], [address] , [employer] [facility] [employer] 5 16:34:06 Notes:Some problems listed i n Documents: #[id number], #[id number], #[id number] could not be added to this patient's chart. Please review these documents and add these problems to the patient's chart manually as needed. Problem Notes None recorded. Procedures Surgical History Date Name Laterality Status Provider Name and Address Organization Details Recorded Time 09/03/19 Medicare Wellness CPT Code, subsequent completed June CATALINA Maynard [facility] 09/02/2023 14:34:10 02/10/20 21 mammography completed Not Available [facility] 05/30/19 08:44:05 07/23/19 19 bone density scan completed Not Available [facility] 05/29/2022 08:44:05 Tubal Ligation completed Not Available [facility] 05/29/2022 08:44:05 Colonoscopy completed Not Available [employer] 05/29/2022 08:44:05 Imaging Results Imaging Date Name Status LastModified by Organiz ation Details LastModified Time 09/22/2023 MAMMO, screening, digital, bilateral completed [email or web address] [facility] [address], [place], [address], 12/12/2023 13:06:36 03/16/2024 XR, ribs, unilateral, w/ PA chest [email or web address] [address], [place], [address], 03/17/2024 12:29:31 04/08/2024 XR, chest, 2 view completed [address], [place], [address], 04/08/2024 11:56:12 Procedure Notes None recorded. Medical Equipment None Reported. Allergies No known drug allergies Medications Name Sig Start Date Stop Date Status Note LastModified by Organization Details LastModified Time fluoxetin e 40 mg capsule TAKE 1 CAPSULE BY MOUTH EVERY DAY active Not Available Not Available No t Available cyclobenz aprine 10 mg tablet TAKE 1 TABLET BY MOUTH EVERY DAY AT BEDTIME active Not Available Not Available No t Available prednison e 10 mg tablet Take 1 tablet every day by oral route in the morning for 30 days. 2024 active Not Available Not Available Not Avai lable Pneumovax -23 25 mcg/0.5 mL injection solution ADM 0.5 ML IM ONCE UTD 10/25 completed Not Available Not Available Not Available lisinopri l 20 mg-hydroc hlorothia zide 12.5 mg tablet Take 1 tablet every day by oral route. 2012 active Not Available Not Available Not Avai lable prednison e 20 mg tablet Take 2 tabs PO twice daily for 2 days; 1 tab PO twice daily for 5 days; 1/2 tab PO twice daily for 2 days; 1/2 tab PO once for 1 day. TAKE 2ND DOSE EVERYDAY AT NOON-10 DAY COURSE active Not Available Not Available No t Available Zithromax Z-Valente 250 mg tablet Take 2 TABLET EVERY DAY by oral route for 1 day. Than 1 tablet for 4 days 12/13 completed Not Available Not Available Not Available acetamino phen 300 mg-codein e 30 mg tablet 03/02 completed Did not work, pt takes regular tylenol Not Available Not Available Not Available ciproflox acin 250 mg tablet 05/21 completed Not Available Not Available Not Available triamcino lone acetonide 0.1 % topical cream APPLY 1 GRAM TOPICALL Y TO THE AFFECTED AREA TWICE DAILY 09/02 completed Not Available Not Available Not Available alprazola m 0.25 mg tablet Take 1 tablet twice a day by oral route. 2024 active Not Available Not Available Not Avai lable benzonata te 100 mg capsule TK 1 C PO Q 8 H PRF COUGH AND CONGESTI ON 07/24 completed Not Available Not Available Not Available oseltamiv ir 75 mg capsule TK 1 C PO Q 12 H TAT 07/24 completed Not Available Not Available Not Available lisinopri l 20 mg-hydroc hlorothia zide 25 mg tablet TAKE 1 TABLET BY MOUTH EVERY DAY active Not Available Not Available No t Available fluoxetin e 20 mg capsule TAKE 1 CAPSULE BY MOUTH EVERY DAY WITH 40MG CAPSULE active Not Available Not Available No t Available amoxicill in 875 mg-potass ium clavulana te 125 mg tablet TAKE 1 TABLET BY MOUTH TWICE DAILY 09/02 completed Not Available Not Available Not Available Vigamox 0.5 % eye drops INSTILL 1 DROP INTO THE SURGICAL EYE TID BEGINNIN G 2 DAYS PRIOR TO SURGERY. active Not Available Not Available No t Available ibandrona te 150 mg tablet Take 1 tablet every month by oral route. active Not Available Not Available No t Available metronida zole 1 % topical gel APPLY TO THE AFFECTED AREA(S) BY TOPICAL ROUTE ONCE DAILY ; RUB IN GENTLY AND COMPLETE LY active Not Available Not Available No t Available multivita min active Not Available Not Available Not Available Nexium 2014 active Not Available Not Available Not Avai lable Prilosec OTC 2012 active Not Available Not Available Not Avai lable ProAir HFA 90 mcg/actua tion aerosol inhaler INL 2 PFS PO QID PRN active Not Available Not Available No t Available Durezol 0.05 % eye drops INSTILL 1 DROP INTO THE SURGICAL EYE TID TO BEGIN AFTER SURGERY active Not Available Not Available No t Available fluoxetin e 60 mg tablet TAKE 1 TABLET BY MOUTH EVERY DAY IN THE MORNING 01/25 completed insuranc e not covering , would like to go to 40 mg with a 20 mg capsule. Not Available Not Available Not Available metronida zole 1 % topical gel with pump APPLY TOPICALL Y TO THE AFFECTED AREA EVERY DAY. RUB IN GENTLY AND COMPLETE LY active Not Available Not Available No t Available Ilevro 0.3 % eye drops,johanna pension INSTILL 1 DROP INTO THE SURGICAL EYE D. BEGIN 2 DAYS PRIOR TO SURGERY. active Not Available Not Available No t Available Shingrix (PF) 50 mcg/0.5 mL intramusc ular suspensio n, kit 10/25 completed Not Available Not Available Not Available Vitals Date Recorded Body height Body mass index (BMI) Body weight Body temperature Heart rate Oxygen saturation Oxygen saturation in Arterial blood by Pulse oximetry Respiratory rate Systolic blood pressure Diastolic blood pressure Provider Name and Address Organization Details Last Updated DateTime 4 167.64 cm 37.8 kg/m2 327249. 61 g 98.1 [degF] 81 /min 97 % 97 % 16 /min 126 mm[Hg] 88 mm[Hg] Martha García RN [facility] [employer] 4 14:56:04 Date Recorded Body height Body mass index (BMI) Body weight Body temperature Heart rate Oxygen saturation Oxygen saturation in Arterial blood by Pulse oximetry Systolic blood pressure Diastolic blood pressure Provider Name and Address Organization Details Last Updated DateTime 4 167.64 cm 38.3 kg/m2 227767. 39 g 98 [degF] 92 /min 98 % 98 % 124 mm[Hg] 76 mm[Hg] Martha García RN [facility] [employer] [facility] 4 14:25:38 Date Recorded Body height Body mass index (BMI) Body weight Body temperature Heart rate Oxygen saturation Oxygen saturation in Arterial blood by Pulse oximetry Systolic blood pressure Diastolic blood pressure Provider Name and Address Organization Details Last Updated DateTime 4 167.64 cm 38.4 kg/m2 307182. 98 g 98 [degF] 88 /min 97 % 97 % 136 mm[Hg] 94 mm[Hg] Martha García RN [facility] [employer] [facility] 4 15:39:23 Date Recorded Body height Body temperature Heart rate Oxygen saturation Oxygen saturation in Arterial blood by Pulse oximetry Systolic blood pressure Diastolic blood pressure Provider Name and Address Organization Details Last Updated DateTime 4 167.64 cm 98.1 [degF] 83 /min 97 % 97 % 128 mm[Hg] 84 mm[Hg] Martha García RN [facility] [employer] [facility] 4 12:36:09 Date Recorded Body height Body mass index (BMI) Body weight Body temperature Heart rate Oxygen saturation Oxygen saturation in Arterial blood by Pulse oximetry Systolic blood pressure Diastolic blood pressure Provider Name and Address Organization Details Last Updated DateTime 5 167.64 cm 37.5 kg/m2 648241. 59 g 97.7 [degF] 80 /min 98 % 98 % 118 mm[Hg] 86 mm[Hg] Cory Mensah RN [facility] [employer] [facility] 5 12:37:56 Social History Question Answer Notes LastModified by Organizat ion Details LastModified Time Tobacco Smoking Status Former Smoker 1ppd Not Available [facility] 05/29/2022 08:43:48 In The 14 Days Before Symptom Onset, Have You Had Close Contact With A Laboratory-confirm ed COVID-19 While That Case Was Ill? No [id number] Information not available 05/29/2022 In The 14 Days Before Symptom Onset, Have You Had Close Contact With A Person Who Is Under Investigation For COVID-19 While That Person Was Ill? No [id number] Information not available 05/29/2022 How Many Years Have You Smoked Tobacco? 40 [id number] Information not available 05/29/2022 Have You Recently Traveled Abroad? No [id number] Information not available 05/29/2022 Sex: Unknown Functional Status None recorded. Mental Status None recorded. Family History Nothing Reported Notes:per patient Medical History No medical history recorded. Gynecological HistoryNo gynecological history recorded. Obstetrics History GPAL:G 0 P 0 0 0 0 Immunizations Vaccine Type Date Status Note Provider Nam e and Address Organization Details Recorded Time Pneumococcal conjugate PCV 13 9 completed Not Available [facility] 10/16/2022 07:28:34 Past Encounters Encounter ID Performer Location Encounter Start Date Encounter Closed Date Diagnosis/Indication Diagnosis SNOMED-CT Code Diagnosis ICD10 Code Diagnosis Note [id number] [facility] Suzie mehta [facility] [place] [address] [address] 10/25/2020 00:00:00 10/25/2020 09:48:44 [id number] [facility] Suzie mehta [facility] [place] [address] 11/13/2020 00:00:00 11/13/2020 09:31:12 [id number] [facility] Suzie mehta [facility] [place] [address] 12/17/2021 00:00:00 12/17/2021 10:46:28 [id number] [facility] Suzie mehta [facility] [place] [address] 12/26/2021 00:00:00 12/26/2021 10:51:16 [id number] Melany Mathur MD [facility] Suzie mehta [address] [place] [address] [place] [address] 10/09/2022 14:50:12 10/09/2022 15:45:00 Injury of head 61771870 S09.90XA Sprain of right wrist 11 25287365 3054338 S63.501A continue gadiel wrap and NSAIDs and use ice [id number] X[facility]I Rock [facility] Suzie [address] [place] [address] [place] [address] 09/03/2023 14:23:36 09/03/2023 15:19:10 Adult health examination 251607883 Z00.00 Screening for disorder 879557092 Z13.9 Screening for malignant neoplasm of breast 476254302 Z12.39 Mixed anxi ety and depressive disorder 001761635 F41.8 Fatigue 76697496 R53.83 Tendinitis of left wrist region 9115024736 3965235 M67.834 Anxiety 00482020 F41.9 Essential hypertension 05293343 I10 Gastroesop hageal reflux disease 089770003 K21.9 [id number] XAVI Rock [facility] [address] [place] [address] 01/26/2024 14:05:08 01/26/2024 15:21:19 Anxiety 81497581 F41.9 Essential hypertension 16440498 I10 Gastroesop hageal reflux disease 544193608 K21.9 Mixed anxi ety and depressive disorder 606297876 F41.8 Strain of left trapezius muscle 7488703418 8262592 S29.012A Steatosis of liver 80108 1007 K76.0 [id number] X[facility]I Rock [address] [address] 03/02/2024 15:05:48 03/02/2024 16:18:29 Fracture of right rib 8476022552 4937769 S22.31XA right fifth anterolate ral rib , mildly displaced Anxiety 70969618 F41.9 Essential hypertension 37112888 I10 Gastroesop hageal reflux disease 687406877 K21.9 [id number] X[facility]I Rock [address] [address] 03/17/2024 12:21:44 03/17/2024 13:54:52 Fracture of right rib 9481951155 5094495 S22.31XA right fifth anterolate ral rib , mildly displaced Anxiety 05567538 F41.9 Essential hypertension 34180982 I10 Gastroesop hageal reflux disease 743254419 K21.9 Hypertensi ve renal failure 43655023 I12.0 [id number] X[facility]I Rock [address] [address] 04/20/2024 12:21:42 04/20/2024 12:56:55 Gallstone 839164476 K80.20 Anxiety 66461961 F41.9 Essential hypertension 45314427 I10 Gastroesop hageal reflux disease 272402199 K21.9 Mixed anxi ety and depressive disorder 954492183 F41.8 Health Concerns Section Related Observation LastModified by Organization Detai ls LastModified Time None Recorded Concern Status LastModified by Organization Details LastModified Time None Recorded Advance Directives Directive None Recorded Payers Encounter Date Sequence Insurance Name Policy Number Policy Harris Covered Member ID Harris Member ID Guarantor Name 09/03/2023 1 [facility] (MEDICARE REPLACEMENT/A DVANTAGE - HMO) [id number] Maris Lennon [id number] Maris Lennon 01/26/2024 1 [facility] (MEDICARE REPLACEMENT/A DVANTAGE - HMO) [id number] Maris Lennon [id number] Maris Lennon 03/02/2024 1 [facility] (MEDICARE REPLACEMENT/A DVANTAGE - HMO) [id number] Maris Lennon [id number] Maris Lennon 03/17/2024 1 [facility] (MEDICARE REPLACEMENT/A DVANTAGE - HMO) [id number] Maris Lennon [id number] Maris Lennon 04/20/2024 1 [facility] (MEDICARE REPLACEMENT/A DVANTAGE - HMO) [id number] Maris Lennon [id number] Maris Lennon Notes Date Note Type Note Provider Name and Address Organization Details Recorded Time 09/03/2023 text/html left handed , an d it is cramping debbie at night . XAVI Rock [address], [place], [address], [employer] 09/04/2023 10:59:56 01/26/2024 text/html left upper back strain . XAVI Rock [address], [place], [address], [employer] 02/22/2024 16:42:01 03/02/2024 text/html cracked 5th rib on right [facility] Rock [address], [place], [address], [employer] 03/13/2024 16:23:51 03/17/2024 text/html still hurts righ t rib lower [facility] [address], [place], [address], [facility] [employer] [facility] 04/03/2024 16:17:39 04/20/2024 text/html gallstones [facility] [address], [place], [address], [facility] [employer] [facility] [employer] [facility] 04/23/2024 20:30:46 OBGyn Episode No OBEpisode recorded.
--- OUTSIDE RECORDS SUMMARY | 2024-05-25 14:50 | XMS_ITS | Referral Summary ---
Author Organization [facility] Address [address] [facility] [place] [address] Care Team Providers Care Vigoureux Printer Name Role Phone Melany Mathur MD Primary Care Provider Source Comments [facility],non-owned Affiliates and Associated Physician Practices is amultiple site organization consisting of ambulatory clinics and hospital sitesin [place], [place], [place] and [place]. This disclosure is being madepursuant to the Care Everywhere program and may not contain all information available regarding this patient. Last updated 17.[facility] Allergies No known active allergies Medications * Be aware that medications may not be up to date on this document. Alwaysverify current medications with the patient. Medication Sig Dispensed Refills Start Date End Date Status ALPRAZolam (XANAX) 0.25 MG tablet Take 0.25 mg by mouth 2 times daily as needed 09/28/2020 Active lisinopril-hydroCHLORO thiazide (PRINZIDE; ZESTORETIC) 20-25 MG tablet Take 1 tablet by mouth once daily 10/30/2020 Active FLUoxetine (PROZAC) 40 MG capsule TK 1 C PO D 02/03/2020 Active Esomeprazole Magnesium (NEXIUM PO) Take by mouth once daily Active Cetirizine HCl (ZYRTEC ALLERGY PO) Take by mouth once daily Active aspirin buffered (BUFFERIN LOW DOSE) 81 MG tablet Take 81 mg by mouth Active Active Problems Problem Noted Date Diagnosed Date Hepatitis C antibody test positive 11/21/2020 Edema of lower extremity 05/31/2020 Stage 2 chronic kidney disease 05/31/2020 Chronic obstructive pulmonary disease 08/11/2018 Former smoker 08/11/2018 Osteoporosis 08/11/2018 Shortness of breath 08/11/2018 Atherosclerotic heart diseas e of [place] coronary artery without angina pectoris 08/03/2018 Essential (primary) hypertension 07/30/2017 Immunizations Name Administration Dates Next Due Bryon Lockhart primary monovalent 12+ yr 0.5mL ,06/02/2020 PNEUMOCOCCAL PPSV23 01/15/2020 Pneumococcal Pcv13 Conj 05/21/2018 Zoster Hzv Vacc Recombinant Inj Im 04/21/2020, Social History Tobacco Use Types Packs/Day Years [...] Mass Index 37.41 11/21/2020 2:51 PM CDT Plan of Treatment Not on file Goals Goal Patient Goal Type Associated Problems Recent Progress Patient-Stated? Author Medication Management General On track( 021 2:59 PM CDT) Abby Carias, RN Note: Expected end date: ongoing Interventions: Take all medications as prescribed Procedures Procedure Name Priority Date/Time Associated Diagnosis Comments COMPREHENSIVE METABOLIC PANEL Routine 11/21/2020 4:59 PM CDT Chronic hepatitis C without hepatic coma (HCC) HEPATITIS C GENOTYPE Routine 11/21/2020 4:59 PM CDT Chronic hepatitis C without hepatic coma (HCC) from Last 3 Months or Most Recently Relevant to Health Maintenance Results * HEPATITIS C GENOTYPE (11/21/2020 4:59 PM CDT) Hepatitis C Genotype Indeterminate 11/27/2020 7:33 AM CDT [facility] ([facility]) Comment: Hepatitis C GENOTYPING IS INDETERMINATE. [...] C Viral RNA is tested using reverse double backer polymerase chain reaction (RT-PCR) to amplify a specific portion of the 5' untranslated region (5' UTR) of the viral genome. The amplified nucleic acid is sequenced bi-directionally using dye-terminator chemistry ([employer]). Sequencing data is compared to a database [...] developed and its performance characteristics determined by [employer]. It has not been cleared or approved by the US Food and Drug Administration. This test was performed in a CLIA certified laboratory and is intended for clinical purposes. Performed By: [facility] [address] [place] [address] Self Pay Collector: Sushma Ramirez MD Blood BLOOD SPECIMEN / Unknown Lab Venipuncture / Unknown 11/21/2020 4:59 PM CDT 11/21/2020 5:34 PM CDT Dipika Staton CANDY DIPPER-FIREPOT OPERATOR AND TENDER LAB - CHEMIS TRY ORDERABLES [facility] ([facility]) [address] [place] [address], [facility] * (ABNORMAL) COMPREHENSIVE METABOLIC PANEL (11/21/2020 4:59 PM CDT) BUN 17 7 - 26 mg/dL 11/21/2020 6:12 PM [facility] Creatinine 1.23(H) 0.56 - 0.96 mg/dL 11/21/2020 6:12 PM [facility] Sodium 141 136 - 145 mmol/L 11/21/2020 6:12 PM [facility] Potassium 4.2 3.5 - 4.5 mmol/L 11/21/2020 6:12 PM [facility] Chloride 102 98 - 107 mmol/L 11/21/2020 6:12 PM [facility] CO2 27 22 - 29 mmol/L 11/21/2020 6:12 PM [facility] Glucose 82 70 - 115 mg/dL 11/21/2020 6:12 PM [facility] Calcium 9.9 8.4 - 10.2 mg/dL 11/21/2020 6:12 PM [facility] Protein Total 7.5 6.0 - 8.3 g/dL 11/21/2020 6:12 PM [facility] Albumin 3.9 3.4 - 5.0 g/dL 11/21/2020 6:12 PM [facility] Bilirubin Total 0.2 0.2 - 1.2 mg/dL 11/21/2020 6:12 PM [facility] Alkaline Phosphatase 93 40 - 150 U/L 11/21/2020 6:12 PM [facility] ALT 17 5 - 55 U/L 11/21/2020 6:12 PM [facility] AST 17 5 - 34 U/L 11/21/2020 6:12 PM [facility] Anion Gap 16 8 - 18 11/21/2020 6:12 PM [facility] BUN/Creatinine Ratio 14 7 - 23 11/21/2020 6:12 PM [facility] Osmolality Calculated 293 270 - 300 mOsm/kg 11/21/2020 6:12 PM [facility] Albumin/Globulin Ratio 1.1 1.1 - 2.3 11/21/2020 6:12 PM CDT [facility] eGFR by CKD-EPI 45(L) >=90 mL/min/1.7 3 m2 11/21/2020 6:12 PM CDT [facility] LABORATORY [facility] Blood BLOOD SPECIMEN / Unknown Lab Venipuncture / Unknown 11/21/2020 4:59 PM CDT 11/21/2020 5:41 PM CDT Dipika Staton CANDY DIPPER-FIREPOT OPERATOR AND TENDER LAB - CHEMIS TRY ORDERABLES [facility] [address] [place] [address], [facility] [phone] from Last 3 Months or Most Recently Relevant to Health Maintenance Care Teams Vigoureux Printer Relationship Specialty Start Date End Date Melany Mathur MD [address] [place] [address] [address] [place] [phone] PCP - General 11/20/20
--- OUTSIDE RECORDS SUMMARY | 2024-05-25 14:50 | XMS_ITS | Clinical Summary ---
Author Organization [employer] [facility] Address [address] [facility] [place] [address] Care Team Providers Care Telephone Instrument Supervisor Name Role Phone Melany Mathur MD Primary Care Provider [phone] Source Comments [facility],non-owned Affiliates and Associated Physician Practices is amultiple site organization consisting of ambulatory clinics and hospital sitesin [place], [place], [place] and [place]. This disclosure is being madepursuant to the Care Everywhere program and may not contain all information available regarding this patient. Last updated 17.[employer] [facility] Allergies No known active allergies Medications * [...] breath 08/11/2018 Atherosclerotic heart diseas e of [place] coronary artery without angina pectoris 08/03/2018 Essential [...] 11/21/2020 2:51 PM CDT Plan of Treatment Health Maintenance Due Date Last Done Comments BONE DENSITY TESTING 1950 COLOGUARD (AGES 45-75) - COLON CA SCREENING 1952 COLON MONITORING 1952 COLONOSCOPY - COLON CA SCREENING 1952 CT COLONOGRAPHY - COLON CA SCREENING 1952 Colorectal Cancer Screening 1952 FIT - COLON CA SCREENING 1952 FLEX SIG - COLON CA SCREENING 1952 MAMMOGRAM 1952 DTAP/TDAP/TD VACCINES (1 - Tdap) 1971 Respiratory Syncytial Virus (RSV) Vaccine Pt: or over 60 yrs (1 - Risk 60-74 years 1-dose series) 2012 SCREENING FOR DIABETES 11/22/2023 11/21/2020 COVID-19 VACCINE ( season) 2023 07/07/2020, 06/02/2020 INFLUENZA VACCINE (#1) 2023 DEPRESSION SCREENING 03/31/2024 MEDICARE AWV CALENDAR YEAR 2024 PNEUMOCOCCAL VACCINE 50+ Completed 01/15/2020, 05/02 ZOSTER VACCINE Completed 04/21/2020, 01/15/2020 HEPATITIS C SCREENING Completed 11/21/2020 , 11/21/2020, 11/21/2020, Additional history exists HEPATITIS B VACCINE Aged Out No longe r eligible based on patient's age to complete this topic HIB VACCINE Aged Out No longer eligi ble based on patient's age to complete this topic HPV VACCINE Aged Out No longer eligi ble based on patient's age to complete this topic MENINGOCOCCAL (Group B) VACCINE Aged Out No longer eligible based on patient's age to complete this topic MENINGOCOCCAL VACCINE Aged Out No nicko nisreen eligible based on patient's age to complete this topic Goals Goal Patient Goal Type Associated Problems [...] HEPATITIS C GENOTYPE (11/21/2020 4:59 PM CDT) [facility] Signature Hepatitis C Genotype Indeterminate 11/27/2020 7:33 AM CDT [facility] ([facility]) Comment: Hepatitis C GENOTYPING IS INDETERMINATE. This [...] C Viral RNA is tested using reverse corner trimmer operator polymerase chain reaction (RT-PCR) to amplify a specific portion of the 5' untranslated region (5' UTR) of the viral genome. The amplified nucleic acid is sequenced bi-directionally using dye-terminator chemistry ([employer]). Sequencing data is compared to a database [...] developed and its performance characteristics determined by [employer]. It has not been cleared or approved by the US Food and Drug Administration. This test was performed in a CLIA certified laboratory and is intended for clinical purposes. Performed By: [facility] [employer] - is now [employer] [address] [place] [address] Grinder And Honer Operator Automatic: Sushma Ramirez MD Blood BLOOD SPECIMEN / Unknown Lab Venipuncture / Unknown 11/21/2020 4:59 PM CDT 11/21/2020 5:34 PM CDT Dipika Staton AUTOMATION TEST DEVELOPER-PLANNING DIVISION SUPERINTENDENT LAB - CHEMIS TRY ORDERABLES [facility] ([facility]) [address] [place] [address] * (ABNORMAL) COMPREHENSIVE METABOLIC PANEL (11/21/2020 4:59 PM CDT) [facility] Signature BUN 17 7 - 26 mg/dL 11/21/2020 6:12 PM CDT [facility] LABORATORY [facility] Creatinine 1.23(H) 0.56 - 0.96 mg/dL 11/21/2020 6:12 PM CDT [facility] Sodium 141 136 - 145 mmol/L 11/21/2020 6:12 PM CDT [facility] Potassium 4.2 3.5 - 4.5 mmol/L 11/21/2020 6:12 PM [facility] Chloride 102 98 - 107 mmol/L 11/21/2020 6:12 PM [facility] CO2 27 22 - 29 mmol/L 11/21/2020 6:12 PM [facility] Glucose 82 70 - 115 mg/dL 11/21/2020 6:12 PM [facility] Calcium 9.9 8.4 - 10.2 mg/dL 11/21/2020 6:12 PM [facility] Protein Total 7.5 6.0 - 8.3 g/dL 11/21/2020 6:12 PM [facility] Albumin 3.9 3.4 - 5.0 g/dL 11/21/2020 6:12 PM [facility] Bilirubin Total 0.2 0.2 - 1.2 mg/dL 11/21/2020 6:12 PM [facility] Alkaline Phosphatase 93 40 - 150 U/L 11/21/2020 6:12 PM [facility] ALT 17 5 - 55 U/L 11/21/2020 6:12 PM [facility] AST 17 5 - 34 U/L 11/21/2020 6:12 PM [facility] Anion Gap 16 8 - 18 11/21/2020 6:12 PM [facility] BUN/Creatinine Ratio 14 7 - 23 11/21/2020 6:12 PM [facility] Osmolality Calculated 293 270 - 300 mOsm/kg 11/21/2020 6:12 PM [facility] Albumin/Globulin Ratio 1.1 1.1 - 2.3 11/21/2020 6:12 PM [facility] eGFR by CKD-EPI 45(L) >=90 mL/min/1.7 3 m2 11/21/2020 6:12 PM [facility] Blood BLOOD SPECIMEN / Unknown Lab Venipuncture / Unknown 11/21/2020 4:59 PM CDT 11/21/2020 5:41 PM T Dipika Staton AUTOMATION TEST DEVELOPER-PLANNING DIVISION SUPERINTENDENT LAB - CHEMIS TRY ORDERABLES [facility] [address] [place] [address], [facility] [phone] from Last 3 Months or Most Recently Relevant to Health Maintenance Care Teams Telephone Instrument Supervisor Relationship Specialty Start Date End Date Melany Mathur MD [address] [place] [address] [address] [place] [phone] PCP - General 11/20/20
== END 2024-05-25 12:56 | disposition home or self-care (01) ==
PROVIDERS: PCP Physician Assistant; Visit Provider Surgery
DX: K80.10 Calculus of gallbladder with chronic cholecystitis without obstruction (principal)
CPT/HCPCS: 36415; 80076; 82150; 83690

== ENCOUNTER 2024-06-02 00:05 | Day surgery (SDC) | payer MEDICARE, SELFPAY ==
[2024-05-20 09:33] VITALS: BMI 38.1
--- NOTE | 2024-05-20 09:44 | PC.NURSE ---
Report to the Outpatient Waiting Room, entrance under the green pavilion located off [facility], at time __0630am on date __06/02/24 . Planned Procedure Time: __0830am .? Time changes happen often and if your time is changed the preop area will call you the afternoon before. - You and your visitor will be asked to self-screen and do not enter if you have any COVID symptoms. Please call surgeon if you need to reschedule. - A mask is optional within the hospital at this time. Patients may have clear liquids (water, carbonated beverages, clear teas, apple juice) until 3 hours prior to surgery with a maximum of 20 ounces. - No food from midnight until time of surgery and no smoking, or chewing tobacco (or any form of nicotine). No chewing gum, candy or mints. (0530am) Take only the following medications with a SIP of water on the morning of surgery: ___Tylenol if needed, alprazolam if needed DO NOT STOP ANY OF YOUR OTHER PRESCRIPTION MEDICATIONS PRIOR TO SURGERY EXCEPT THE FOLLOWING Hold all vitamins and supplements for 3 days per anesthesiologist. Medications to discontinue per physician ___None Date to take last dose__None Please no make-up, nail german, hairspray, perfume, deodorant, or body powder the day of surgery.? No jewelry (including any body piercings) or valuables the day of surgery, leave them at home.? Please take a shower or bath the night before, or the morning of, surgery with an antibacterial soap.? Wear comfortable, loose fitting clothing.? - Jewelry must be removed prior to entering the operating room.? Rings and piercings that are not removed may be cut off. - The hospital will not accept responsibility for valuables.? - Please leave all valuables, including medications, at home the day of surgery. If you are going home after surgery, a licensed ross carrier driver must drive you home.? - NO public transportation without another adult if you receive anesthesia. - We recommend that an adult stay with you for 24 hours following discharge. - We also recommend that you do not drive, make important decision, drink alcoholic beverages, or take any drugs that were not prescribed by your health care provider for at least 24 hours after your discharge time. Follow any additional instructions given to you from your surgeon. Telephone instructions given to ___Patient and asked if any additional questions and then verbalized understanding. Patient advised to call surgeon office or pre surgery nurse liaison [phone] if any additional questions.
[2024-06-02] VITALS (9 sets, daily range): BP systolic 120–142; BP diastolic 56–87; PULSE 66–74; RESP 17–22; TEMP 36.3–36.5; O2SAT 93–100
--- OUTSIDE RECORDS SUMMARY | 2024-06-02 00:08 | XMS_ITS | CONTINUITY OF CARE DOCUMENT ---
Author Name stephane calderón Address Unknown Organization [facility] Address [address] [facility] [address] [place] [address] Phone [phone] Care Team Providers Care Motor Runner Name Role Phone Jose BALBUENA, Jayy Unavailable CHARAN BALBUENA, RUNDA Unavailable [phone] CHARAN BALBUENA, RUNDA Unavailable PROBLEMS Condition Status Date Provider Notes HTN [...] nosis - In-person encounter Office Visit Jayy Garcia MD [facility] - In-person encounter Office Visit Jayy Garcia MD [facility] - In-person encounter Office Visit Jayy Garcia MD [facility] CAD- normal echo and stress test 08/16Leg edema- b/l venous insufficiency 08/16 - In-person encounter Office Visit Jayy Garcia MD [facility] Former smokerShortness of breath- Normal ech, normal stress nuc 08/16COPDObesityOsteopor osisLeg edema- b/l venous insufficiency 08/16 VITAL SIGNS Date Observation Value Provider Body Mass Index (Ratio) 38.12 kg/m2 Pedro Garcia MD blood pressure, diastolic 85 mm[Hg] [facility] blood pressure, systolic 138 mm[Hg] [facility] oxygen saturation, oximetry 95 % [facility] pulse rate 96 /min [facility] respiratory rate E&M 16 /min Meme D adilene weight E&M 236.2 [lb_av] [facility] height E&M 66 [in_i] [facility] Body Mass Index (Ratio) 37.93 kg/m2 Pedro [...] Becca Salas oxygen saturation, oximetry 98 % [facility] E&M 16 /min [place] Salas pulse rate 82 /min [place] Salas weight E&M 233 [lb_av] [place] Slaas height E&M 66 [in_i] [facility] [place] Body Mass Index (Ratio) 37.60 kg/m2 Pedro Garcia MD blood pressure, diastolic 86 mm[Hg] Sulaiman lea Salas blood pressure, systolic 122 mm[Hg] Becca last [place] oxygen saturation, oximetry 96 % [facility] [place] respiratory rate E&M 16 /min [facility] [place] pulse rate 83 /min [facility] [place] weight E&M 233 [lb_av] [facility] [place] height E&M 66 [in_i] [facility] [place] blood pressure, resting Yes Alessia Salas ALLERGIES [...] active TK 1 T PO QD 7 [place] Salas #90, 90 days supply, Prescribed by ANALILIA NELSON, Filled 11/28/2017 ALPRAZOLAM 0.25 MG ORAL TABLET active TK 1 T PO BID PRN 9 [place] Salas #60, 30 days supply, Prescribed by ANALILIA NELSON, Filled 06/16/2018 IBANDRONATE SODIUM 150 MG ORAL TABLET active TK 1 T PO Q MONTH 6 Tunde Salas #3, 90 days supply, Prescribed by ANALILIA NELSON, Filled 07/24/2018 PROAIR HFA 108 (90 BASE) MCG/ACT INHALATION AEROSOL SOLUTION active INL 2 PFS PO QID PRN 9 Elliston Salas #8.5, 25 days supply, Prescribed by [...] Jayy Garcia MD smoking, year quit 2018 [place] I ngram number of years as a smoker 50 a Elliston Salas smoking history, total pack/day 1 Tunde Salas cigarette use yes Tunde Salas smoking status Former smoker Tunde Ingr am social history E&M S moking History: Destiney stoddard is a former smoker. Jayy Garcia MD social history reviewed E&M revi ewed - no changes required Jayy Garcia MD smoking, year quit 2018 [place] I ngram number of years as a smoker 50 a Tunde Salas smoking history, total pack/day 1 [place] Salas cigarette use yes Tunde Salas number [...] Payer name Policy type / Coverage type [place] red libertarian ID AARP MEDICARE ADVANTAGE HMO-POS HMO [id number] ADVANCE DIRECTIVES Name Date DISCUSSED - NO DECISION MADE TREATMENT PLAN Date Name Performer [id number],S, Mendy Leavitt obsmeyer [id number],S, Mendy Leavitt obsmeyer [id number],S, Mendy Leavitt obsmeyer [id number],S, Mendy Tree obsmeyer [id number],B, Alex Ahmedza i [id number],S, Alex Ahmedza i [id number],S, Alex Ahmedza i [id number],S, Alex Ahmedza i [id number],S, Alex Ahmedza i Telehealth Mendy Jacobsm eyer [...] MD Date Name Complete Echo DLCO - 71858 FRC - 13767 FVC - 16217 Venous Doppler Bilat eral LE - Reflux [...]
--- OUTSIDE RECORDS SUMMARY | 2024-06-02 00:08 | XMS_ITS | Clinical Summary ---
Author Organization [facility] Address [address] [facility] [place] [address] Care Team Providers Care Sales Account Coordinator Name Role Phone Melany Mathur MD Primary Care Provider [phone] Source Comments [facility],non-owned Affiliates and Associated Physician Practices is amultiple site organization consisting of ambulatory clinics and hospital sitesin [place], [place], [place] and [place]. This disclosure is being madepursuant to the Care Everywhere program and may not contain all information available regarding this patient. Last updated 17.[facility] Allergies No known active allergies Medications * [...] breath 08/11/2018 Atherosclerotic heart diseas e of [place] coronary artery without angina pectoris 08/03/2018 Essential [...] HEPATITIS C GENOTYPE (11/21/2020 4:59 PM CDT) [facility] Signature Hepatitis C Genotype Indeterminate 11/27/2020 7:33 AM CDT [facility] ([facility]) Comment: Hepatitis C GENOTYPING IS INDETERMINATE. This [...] C Viral RNA is tested using reverse ciaio lumite injector polymerase chain reaction (RT-PCR) to amplify a specific portion of the 5' untranslated region (5' UTR) of the viral genome. The amplified nucleic acid is sequenced bi-directionally using dye-terminator chemistry ([employer]). Sequencing data is compared to a database [...] developed and its performance characteristics determined by [employer]. It has not been cleared or approved by the US Food and Drug Administration. This test was performed in a CLIA certified laboratory and is intended for clinical purposes. Performed By: [facility] [employer] [address] [place] [address] Certified Nurse Operating Room: Sushma Ramirez MD Blood BLOOD SPECIMEN / Unknown Lab Venipuncture / Unknown 11/21/2020 4:59 PM CDT 11/21/2020 5:34 PM CDT Dipika Staton MOTORCYCLE POLICE-MANAGER CIVIL LAB - CHEMIS TRY ORDERABLES [facility] ([facility]) [address] [place] [address] * (ABNORMAL) COMPREHENSIVE METABOLIC PANEL (11/21/2020 4:59 PM CDT) [facility] Signature BUN 17 7 - 26 mg/dL 11/21/2020 6:12 PM CDT [facility] LABORATORY [facility] Creatinine 1.23(H) 0.56 - 0.96 mg/dL 11/21/2020 6:12 PM CDT [facility] Sodium 141 136 - 145 mmol/L 11/21/2020 6:12 PM CDT [facility] Potassium 4.2 3.5 - 4.5 mmol/L 11/21/2020 6:12 PM [facility] Chloride 102 98 - 107 mmol/L 11/21/2020 6:12 PM [facility] CO2 27 22 - 29 mmol/L 11/21/2020 6:12 PM [facility] Glucose 82 70 - 115 mg/dL 11/21/2020 6:12 PM [facility] Calcium 9.9 8.4 - 10.2 mg/dL 11/21/2020 6:12 PM [facility] Protein Total 7.5 6.0 - 8.3 g/dL 11/21/2020 6:12 PM [facility] Albumin 3.9 3.4 - 5.0 g/dL 11/21/2020 6:12 PM [facility] Bilirubin Total 0.2 0.2 - 1.2 mg/dL 11/21/2020 6:12 PM [facility] Alkaline Phosphatase 93 40 - 150 U/L 11/21/2020 6:12 PM [facility] ALT 17 5 - 55 U/L 11/21/2020 6:12 PM [facility] AST 17 5 - 34 U/L 11/21/2020 6:12 PM [facility] Anion Gap 16 8 - 18 11/21/2020 6:12 PM [facility] BUN/Creatinine Ratio 14 7 - 23 11/21/2020 6:12 PM [facility] Osmolality Calculated 293 270 - 300 mOsm/kg 11/21/2020 6:12 PM [facility] Albumin/Globulin Ratio 1.1 1.1 - 2.3 11/21/2020 6:12 PM [facility] eGFR by CKD-EPI 45(L) >=90 mL/min/1.7 3 m2 11/21/2020 6:12 PM [facility] Blood BLOOD SPECIMEN / Unknown Lab Venipuncture / Unknown 11/21/2020 4:59 PM CDT 11/21/2020 5:41 PM T Dipika Staton MOTORCYCLE POLICE-MANAGER CIVIL LAB - CHEMIS TRY ORDERABLES [facility] [address] [place] [address], [facility] [phone] from Last 3 Months or Most Recently Relevant to Health Maintenance Care Teams Sales Account Coordinator Relationship Specialty Start Date End Date Melany Mathur MD [address] [place] [address] [address] [place] [phone] PCP - General 11/20/20
--- OUTSIDE RECORDS SUMMARY | 2024-06-02 00:08 | XMS_ITS | Referral Summary ---
Author Organization [facility] Address [address] [place] [address] Care Team Providers Care Regulatory Affairs Internship Name Role Phone Melany Mathur MD Primary Care Provider [phone] Source Comments [facility],non-owned Affiliates and Associated Physician Practices is amultiple site organization consisting of ambulatory clinics and hospital sitesin [place], [place], [place] and [place]. This disclosure is being madepursuant to the Care Everywhere program and may not contain all information available regarding this patient. Last updated 17.[facility] Allergies No known active allergies Medications * [...] breath 08/11/2018 Atherosclerotic heart diseas e of [place] coronary artery without angina pectoris 08/03/2018 [...] Genotype Indeterminate 11/27/2020 7:33 AM CDT [facility] ([facility]) Comment: Hepatitis C GENOTYPING IS INDETERMINATE. [...] C Viral RNA is tested using reverse gift basket packer polymerase chain reaction (RT-PCR) to amplify a specific portion of the 5' untranslated region (5' UTR) of the viral genome. The amplified nucleic acid is sequenced bi-directionally using dye-terminator chemistry ([employer]). Sequencing data is compared to a database [...] developed and its performance characteristics determined by [employer]. It has not been cleared or approved by the US Food and Drug Administration. This test was performed in a CLIA certified laboratory and is intended for clinical purposes. Performed By: [facility] [address] [place] [address] Resistance Machine Welder Setter: Sushma Ramirez MD Blood BLOOD SPECIMEN / Unknown Lab Venipuncture / Unknown 11/21/2020 4:59 PM CDT 11/21/2020 5:34 PM CDT Dipika Staton ORTHOPEDIC PHYSICIAN-SOCIAL SCIENCE PROFESSOR LAB - CHEMIS TRY ORDERABLES [facility] ([facility]) [address] [place] [address], [facility] * (ABNORMAL) COMPREHENSIVE METABOLIC PANEL (11/21/2020 4:59 PM CDT) BUN 17 7 - 26 mg/dL 11/21/2020 6:12 PM [facility] Creatinine 1.23(H) 0.56 - 0.96 mg/dL 11/21/2020 6:12 PM [facility] Sodium 141 136 - 145 mmol/L 11/21/2020 6:12 PM [facility] Potassium 4.2 3.5 - 4.5 mmol/L 11/21/2020 6:12 PM [facility] Chloride 102 98 - 107 mmol/L 11/21/2020 6:12 PM [facility] CO2 27 22 - 29 mmol/L 11/21/2020 6:12 PM [facility] Glucose 82 70 - 115 mg/dL 11/21/2020 6:12 PM [facility] Calcium 9.9 8.4 - 10.2 mg/dL 11/21/2020 6:12 PM [facility] Protein Total 7.5 6.0 - 8.3 g/dL 11/21/2020 6:12 PM [facility] Albumin 3.9 3.4 - 5.0 g/dL 11/21/2020 6:12 PM [facility] Bilirubin Total 0.2 0.2 - 1.2 mg/dL 11/21/2020 6:12 PM [facility] Alkaline Phosphatase 93 40 - 150 U/L 11/21/2020 6:12 PM [facility] ALT 17 5 - 55 U/L 11/21/2020 6:12 PM [facility] AST 17 5 - 34 U/L 11/21/2020 6:12 PM [facility] Anion Gap 16 8 - 18 11/21/2020 6:12 PM [facility] BUN/Creatinine Ratio 14 7 - 23 11/21/2020 6:12 PM [facility] Osmolality Calculated 293 270 - 300 mOsm/kg 11/21/2020 6:12 PM [facility] Albumin/Globulin Ratio 1.1 1.1 - 2.3 11/21/2020 6:12 PM CDT [facility] eGFR by CKD-EPI 45(L) >=90 mL/min/1.7 3 m2 11/21/2020 6:12 PM CDT [facility] Blood BLOOD SPECIMEN / Unknown Lab Venipuncture / Unknown 11/21/2020 4:59 PM CDT 11/21/2020 5:41 PM CDT Dipika Staton ORTHOPEDIC PHYSICIAN-SOCIAL SCIENCE PROFESSOR LAB - CHEMIS TRY ORDERABLES [facility] [address] [place] [address], [facility] [phone] from Last 3 Months or Most Recently Relevant to Health Maintenance Care Teams Regulatory Affairs Internship Relationship Specialty Start Date End Date Melany Mathur MD [address] [place] [address] [address] [place] [phone] PCP - General 11/20/20
--- OUTSIDE RECORDS SUMMARY | 2024-06-02 00:08 | XMS_ITS | Patient Health Summary ---
Author Organization [facility] Address [address] [place] [address] Care Team Providers Care Certified Ophthalmic Assistant Name Role Phone Melany Mathur MD Primary Care Provider [phone] Note from [facility],non-owned Affiliates and Associated Physician Practices is amultiple site organization consisting of ambulatory clinics and hospital sitesin [place], [place], [place] and [place]. This disclosure is being madepursuant to the Care Everywhere program and may not contain all information available regarding this patient. Last updated 17.[facility] Allergies No known active allergies Medications * [...] breath 08/11/2018 Atherosclerotic heart diseas e of [place] coronary artery without angina pectoris 08/03/2018 Essential [...] without hepatic coma (HCC) Results * PT-INR [facility] (11/21/2020 4:59 PM CDT) Pathologist [facility] PT 12.5 12.1 - 14.8 Seconds 11/21/2020 5:54 PM CDT [facility] INR 1.0 See Comment 11/21/2020 5:54 PM CDT [facility] Comment:The suggested therap eutic range for standard coumadin (warfarin) therapy is an INR of 2.0-3.0. For high-risk patients (Mechanical Mitral Valve Prosthesis, etc.), the suggested prophylactic therapeutic range is an INR of 2.5-3.5. Blood BLOOD SPECIMEN / Unknown Lab Venipuncture / Unknown 11/21/2020 4:59 PM CDT 11/21/2020 5:34 PM CDT Dipika Staton BEVERAGE DISTILLER-POLISHER AND SANDER LAB - COAGUL ATION ORDERABLES [facility] [address] [place] [id number], [facility] [phone] * HEPATITIS C GENOTYPE (11/21/2020 4:59 PM CDT) Pathologist [facility] Hepatitis C Genotype Indeterminate 11/27/2020 7:33 AM CDT [employer] ([facility]) Comment: Hepatitis C GENOTYPING IS INDETERMINATE. This [...] C Viral RNA is tested using reverse manager product design polymerase chain reaction (RT-PCR) to amplify a specific portion of the 5' untranslated region (5' UTR) of the viral genome. The amplified nucleic acid is sequenced bi-directionally using dye-terminator chemistry ([employer]). Sequencing data is compared to a database [...] developed and its performance characteristics determined by [employer]. It has not been cleared or approved by the US Food and Drug Administration. This test was performed in a CLIA certified laboratory and is intended for clinical purposes. Performed By: Dr [facility] [address] [place], [place] [id number] Emts: Sushma Ramirez MD Blood BLOOD SPECIMEN / Unknown Lab Venipuncture / Unknown 11/21/2020 4:59 PM CDT 11/21/2020 5:34 PM CDT Dipika Staton BEVERAGE DISTILLER-POLISHER AND SANDER LAB - CHEMIS TRY ORDERABLES [facility] [employer] ([facility]) [address] [place] [address], [facility] * HEPATITIS C RNA QUANTITATIVE (11/21/2020 4:59 PM CDT) [facility] Hepatitis C RNA PCR, Interp Not detected Not detected 11/23/2020 11:[address] [facility] Blood BLOOD SPECIMEN / Unknown Lab Venipuncture / Unknown 11/21/2020 4:59 PM CDT 11/21/2020 5:[address] [facility] - 11/23/2020 11:09 AM CDT The Hepatitis C viral (HCV) RNA analysis utilized a serum sample, real-time reverse manager product design PCR, and is reported as Not Detected, [...] the isolation of HCV RNA with reverse manager product design of genomic HCV RNA followed by real-time PCR in the presence of an unrelated RNA internal control. The internal control ensures that RNA is isolated, and that no general significant inhibitors of the RT-PCR process are present. The analysis was performed using a U.S. FDA approved test methodology ([employer] Real Time HCV). Dipika Staton BEVERAGE DISTILLER-POLISHER AND SANDER LAB - CHEMIS TRY ORDERABLES [facility] [address] [place] [address], [facility] [phone] * CBC WITH DIFFERENTIAL (11/21/2020 4:59 PM CDT) WBC 8.3 3.5 - 10.5 10 3/uL 11/21/2020 5:50 PM CDT [facility] RBC 5.17 3.80 - 5.20 10 6/uL 11/21/2020 5:50 PM CDT [facility] Hemoglobin 13.9 12.0 - 15.6 g/dL 11/21/2020 5:50 PM CDT [facility] Hematocrit 44.7 35.0 - 45.0 % 11/21/2020 5:50 PM CDT [facility] MCV 86.5 80.7 - 98.3 fL 11/21/2020 5:50 PM CDT [facility] MCH 26.9 26.7 - 34.0 pg 11/21/2020 5:50 PM CDT [facility] MCHC 31.1 30.8 - 35.9 g/dL 11/21/2020 5:50 PM T [facility] Platelet Count 299 150 - 400 10 3/uL 11/21/2020 5:50 PM CDT [facility] RDW-SD 41.8 36.0 - 50.0 fL 11/21/2020 5:50 PM CDT [facility] RDW-CV 13.2 11.2 - 14.8 % [...] CDT 11/21/2020 5:42 PM CDT Dipika Staton BEVERAGE DISTILLER-POLISHER AND SANDER LAB - HEMATO LOGY ORDERABLES [facility] [address] [place] [address], [facility] [phone] * (ABNORMAL) COMPREHENSIVE METABOLIC PANEL (11/21/2020 4:59 [...] 7 - 23 11/21/2020 6:12 PM T [facility] Osmolality Calculated 293 270 - 300 mOsm/kg 11/21/2020 6:12 PM T [facility] Albumin/Globulin Ratio 1.1 1.1 - 2.3 11/21/2020 6:12 PM T [facility] eGFR by CKD-EPI 45(L) >=90 mL/min/1.7 3 m2 11/21/2020 6:12 PM CDT [facility] Blood BLOOD SPECIMEN / Unknown Lab Venipuncture / Unknown 11/21/2020 4:59 PM CDT 11/21/2020 5:41 PM CDT Dipika Staton BEVERAGE DISTILLER-POLISHER AND SANDER LAB - CHEMIS TRY ORDERABLES Performing Organization Address City/[facility]/ZIP Co de Phone Number [address] [address], [place] [phone] * HEPATITIS B SURFACE ANTIBODY (11/21/2020 4:59 PM CDT) Hepatitis B Virus Surface Antibody Non-react fariba Non-react fariba 11/21/2020 6:52 PM CDT [facility] Comment: < 8 mIU/mL Hepatitis B surface Antibody (HBsAb). Nonreactive for HBsAb - individual is considered not immune to Hepatitis B Virus infection. Hepatitis B Surface Antibody Quantitative 2.1 <8.0 mIU/mL 11/21/2020 6:52 PM T [facility] Comment: Hepatitis B Surface Antibody Numeric Result Interpretation: Nonreactive: <8.0 mIU/mL Indeterminate: 8.0 - 12.0 mIU/mL Reactive: >12.0 mIU/mL Blood BLOOD SPECIMEN / Unknown Lab Venipuncture / Unknown 11/21/2020 4:59 PM CDT 11/21/2020 5:34 PM CDT Dipika Staton BEVERAGE DISTILLER-POLISHER AND SANDER LAB - CHEMIS TRY ORDERABLES Performing Organization Address City/[facility]/ZIP Co de Phone Number [address] [address], [place] [phone] * HEPATITIS B CORE ANTIBODY (11/21/2020 4:59 PM CDT) HBc Antibody Total Non-reacti ve Non-reacti ve 11/21/2020 6:52 PM CDT [facility] Blood BLOOD SPECIMEN / Unknown Lab Venipuncture / Unknown 11/21/2020 4:59 PM CDT 11/21/2020 5:34 PM CDT Dipika Staton BEVERAGE DISTILLER-POLISHER AND SANDER LAB - CHEMIS TRY ORDERABLES [address] [address], [facility] [phone] * HEPATITIS B SURFACE ANTIGEN W RFLX CONFIRMATION (11/21/2020 4:59 PM CDT) Hepatitis B Virus Surface Antigen Non-reacti ve Non-reacti ve 11/21/2020 6:52 PM CDT [facility] Blood BLOOD SPECIMEN / Unknown Lab Venipuncture / Unknown 11/21/2020 4:59 PM CDT 11/21/2020 5:34 PM CDT Dipika Staton BEVERAGE DISTILLER-POLISHER AND SANDER LAB - CHEMIS TRY ORDERABLES [address] [address], [place] [phone] Care Teams Certified Ophthalmic Assistant Relationship Specialty Start Date End Date Melany Mathur MD [facility] [place] [id number] PCP - General 11/20/20
--- OUTSIDE RECORDS SUMMARY | 2024-06-02 00:08 | XMS_ITS | Clinical Summary ---
Author Organization [facility] Address [address], [place] [address] Phone Care Team Providers Care Planer Feeder Name Role Phone Melany Mathur MD Primary Care Provider [phone] Allergies No known active allergies Medications Medication [...] Comments Blood Pressure 121/90 05/14/2022 4:25 PM ASSEMBLER ADJUSTER Pulse 84 11/07/2020 12:10 PM CDT Temperature - - Respiratory Rate - - Oxygen Saturation - - Inhaled Oxygen Concentration - - Weight 102 kg (225 lb) 05/14/2022 4:25 PM ASSEMBLER ADJUSTER Height 167.6 cm (5' 6 ) 05/14/2022 10:41 AM ASSEMBLER ADJUSTER Body Mass Index 36.32 05/14/2022 10:41 AM ASSEMBLER ADJUSTER Plan of Treatment Health Maintenance Due Date Last Done Comments Pneumococcal PPSV23/PCV13 65 + Years / High and Highest Risk (2 of 4 - PPSV23 or PCV20) 07/16/2018 05/21/2018 COVID-19 Vaccine ( season) 11/30/202311/2020, 06/02/2020 Influenza Vaccine (#1) 2023 Care Teams Planer Feeder Relationship Specialty Start Date End Date Melany Mathur MD [facility] [place] [address] PCP - General 07/07/18
--- OUTSIDE RECORDS SUMMARY | 2024-06-02 00:08 | XMS_ITS | Data Portability ---
Author Organization [facility] [employer], Main Office Address [address] [place] [address] Assessment No assessment recorded. Plan of Treatment Reminders Order Date Submit Date Provider Last Modified By Organization Details Last Modified Time Details Appointments Follow Up 15 2024 11:00A XAVI Martin Not available Not available Not available Lab TSH, serum or plasma [address], [address] [place], [address], 09/10/2023 08:55:22 vitamin B12, serum 2023 024 [facility], [address] [place], [address], 09/03/2023 20:58:51 folate, serum [address], [address] [place], [address], 09/10/2023 08:55:22 CMP, serum or plasma 2023 024 [facility], [address] [place], [address], 09/03/2023 20:58:51 vitamin D, 25-hydrox y, total, serum [address], [address] [place], [address], 09/10/2023 08:55:22 T4, free, serum [address], [address] [facility], [place], [address], 09/10/2023 08:55:22 CBC w/ auto diff 2023 024 [facility], [address] [place], [address], 09/03/2023 20:58:52 Referral gastroent erologist referral - Fatty liver .Please eval and treat. Please call patient to schedule an appointme nt. Thank you 2023 024 [place] [address] [facility], [address], [address], [place], [address], 02/23/2024 08:53:00 Procedures None recorded. Surgeries None recorded. Imaging XR, ribs, unilatera l, w/ PA chest - 5th anterolat eral rib fracture . 2023 024 [facility], [address], [facility] [address], [place], [address], 03/16/2024 17:15:37 MAMMO, screening , digital, bilateral [address] [facility], [address] [place] [address] , [place], [address], 11/19/2023 08:44:46 Medication Orders prednison e 10 mg tablet 2024 025 [facility], [address] [place], [address], 04/20/2024 12:52:06 prednison e 20 mg tablet 2023 024 [facility][id number], [address], [place], [place], [id number], 03/17/2024 12:42:42 cyclobenz aprine 10 mg tablet 2023 024 [facility] #[id number], [address], [place], [place], [id number], 01/26/2024 15:06:24 Prozac 40 mg capsule 2023 [facility] #56722, [address], [place], [place], [id number], 01/26/2024 15:08:44 fluoxetin e 20 mg capsule 2023 [facility] #17575, [address], [place], [place], [id number], 01/26/2024 15:08:57 fluoxetin e 60 mg tablet [email or web address] [place] [address] [facility]76832, [address], [place], [place], [id number], 01/26/2024 15:06:37 Patient TargetsNo targets recorded. Patient Instructions Encounter Date Encounter Id Patient Instructions Last Modified By Organization Details Last Modified Time 09/03/2023 [id number] dementia rating scale-2* [email or web address] Not available 09/03/2023 16:51:00 Timed Up and Go test (TUG)* [email or web address] Not available 09/03/2023 16:51:10 depression screening* [email or web address] Not available 09/03/2023 16:51:14 alcohol misuse* [email or web address] Not available 09/03/2023 16:51:19 multi-dimensiona l health assessment questionnaire* [email or web address] Not available 09/03/2023 16:51:05 Personalized [facility] Plan and Screening Recommendations Advance Directives [...] plan [email or web address] Not available 09/02/2023 14:44:15 03/02/2024 [id number] showed her how t o take deep , slow breaths to keep lungs aerated, get BP rechecked . use a heating pad on low 20 min daily [email or web address] Not available 03/13/2024 16:23:07 Reason for Referral Vp Lab Referral for Steatosis of liver Fatty liver .Please eval and treat. Please call patient to schedule an appointment. Thank you Referring Physician: Camron Gilliland, Family Medicine, Encounter Date: 01/26/2024 Results Created Date Observation Date Name Description Value Unit Range Abnormal Flag Note LastModifiedBy Organization Detail LastModifiedTime 09/22/19 24 09/22/2023 MAMMO , юлия cedeño, jesse al, dominic castillo No observ ation record ed. [email or web address] [facility] [address] [place], [address], 12/12/2023 13:06:36 03/16/20 24 03/16/2024 XR, ribs, unila teral , w/ PA chest No observ ation record ed. [email or web address] [facility] [address], [place], [address], 03/17/2024 12:29:31 04/08/19 25 04/08/2024 XR, chest , 2 view No observ ation record ed. [email or web address], [place], [address], 04/08/2024 11:56:12 Result Notes None recorded. Problems Name Problem SNOMED Code Status Onset Date Resolution Date Notes Provider Name and Address Organization Details Recorded Time Serum creatinine above reference range 150736258 Active Not Available [facility] 3 07:28:34 Gastroesop hageal reflux disease 013366441 Active Not Available [facility] 3 07:28:34 Hypertensi ve disorder 80351689 Active Not Available [facility] 3 07:28:34 Anxiety 33750315 Active Not Available [facility] 3 07:28:34 Hypertensi ve renal failure 91634862 Active Not Available [facility] 3 07:28:34 Essential hypertensi on 07773433 Active Not Available [facility] 3 07:28:34 Mixed anxiety and depressive disorder 331588452 Active 2022 Not Available [facility] 3 07:28:34 Injury of head 48780324 Active 2022 Not Available [facility] 3 07:28:34 Sprain of right wrist 6372496338909 9103 Active 2022 Not Available [facility] 3 07:28:34 Screening for malignant neoplasm of breast Active 2023 XAVI Rock [address], [place], [address] , [employer] 4 15:06:59 Fatigue 04071247 Active 2023 XAVI Rock [address], [place], [address] , [employer] 4 15:10:37 Tendinitis of left wrist region 0841558317778 9100 Active 2023 XAVI Rock [address], [address], [place], [address] , [place] [facility] [employer] 4 15:14:52 Strain of left trapezius muscle 3485108837562 9109 Active 2023 XAVI Rock [address], [address], [place], [address] , [employer] [facility] 4 15:05:26 Steatosis of liver 617507158 Active 2023 XAVI Rock [address], [address], [place], [address] , [place] [facility] [employer] [facility] 4 15:13:01 Fracture of right rib 7840046021573 4102 Active 2023 XAVI Rock [address], [place], [address] , [employer] [facility] 4 16:05:03 Gallstone 708773330 Active 2024 XAVI Rock [address], [address], [place], [address] , [employer] [facility] [employer] 5 16:34:06 Notes:Some problems listed i n Documents: #[id number], #[id number], #[id number] could not be added to this patient's chart. Please review these documents and add these problems to the patient's chart manually as needed. Problem Notes None recorded. Procedures Surgical History Date Name Laterality Status Provider Name and Address Organization Details Recorded Time 09/03/19 Medicare Wellness CPT Code, subsequent completed June CATALINA Maynard [facility] [employer] 09/02/2023 14:34:10 02/10/20 21 mammography completed Not Available [facility] 05/30/19 08:44:05 07/23/19 19 bone density scan completed Not Available [facility] 05/29/2022 08:44:05 Tubal Ligation completed Not Available [facility] 05/29/2022 08:44:05 Colonoscopy completed Not Available [employer] 05/29/2022 08:44:05 Imaging Results Imaging Date Name Status LastModified by Organiz ation Details LastModified Time 09/22/2023 MAMMO, screening, digital, bilateral completed [email or web address] [facility] [address], [place], [address], 12/12/2023 13:06:36 03/16/2024 XR, ribs, unilateral, w/ PA chest [email or web address] [address], [place], [address], 03/17/2024 12:29:31 04/08/2024 XR, chest, 2 view completed [address], [place], [address], 04/08/2024 11:56:12 Procedure Notes None recorded. Medical [...] Updated DateTime 4 167.64 cm 37.8 kg/m2 955456. 61 g 98.1 [degF] 81 /min 97 % 97 % 16 /min 126 mm[Hg] 88 mm[Hg] Martha García RN [facility] [employer] 4 14:56:04 Date Recorded Body height Body mass index (BMI) Body weight Body temperature Heart rate Oxygen saturation Oxygen saturation in Arterial blood by Pulse oximetry Systolic blood pressure Diastolic blood pressure Provider Name and Address Organization Details Last Updated DateTime 4 167.64 cm 38.3 kg/m2 366345. 39 g 98 [degF] 92 /min 98 % 98 % 124 mm[Hg] 76 mm[Hg] Martha García RN [facility] [employer] [facility] 4 14:25:38 Date Recorded Body height Body mass index (BMI) Body weight Body temperature Heart rate Oxygen saturation Oxygen saturation in Arterial blood by Pulse oximetry Systolic blood pressure Diastolic blood pressure Provider Name and Address Organization Details Last Updated DateTime 4 167.64 cm 38.4 kg/m2 472618. 98 g 98 [degF] 88 /min 97 % 97 % 136 mm[Hg] 94 mm[Hg] Martha García RN [facility] [employer] [facility] 4 15:39:23 Date Recorded Body height Body temperature Heart rate Oxygen saturation Oxygen saturation in Arterial blood by Pulse oximetry Systolic blood pressure Diastolic blood pressure Provider Name and Address Organization Details Last Updated DateTime 4 167.64 cm 98.1 [degF] 83 /min 97 % 97 % 128 mm[Hg] 84 mm[Hg] Martha García RN [facility] [employer] [facility] 4 12:36:09 Date Recorded Body height Body mass index (BMI) Body weight Body temperature Heart rate Oxygen saturation Oxygen saturation in Arterial blood by Pulse oximetry Systolic blood pressure Diastolic blood pressure Provider Name and Address Organization Details Last Updated DateTime 5 167.64 cm 37.5 kg/m2 066300. 59 g 97.7 [degF] 80 /min 98 % 98 % 118 mm[Hg] 86 mm[Hg] Cory Mensah RN [facility] [employer] [facility] 5 12:37:56 Social History Question Answer Notes LastModified by Organizat ion Details LastModified Time Tobacco Smoking Status Former Smoker 1ppd Not Available [facility] 05/29/2022 08:43:48 In The 14 Days Before Symptom Onset, Have You Had Close Contact With A Laboratory-confirm ed COVID-19 While That Case Was Ill? No [id number] Information not available 05/29/2022 In The 14 Days Before Symptom Onset, Have You Had Close Contact With A Person Who Is Under Investigation For COVID-19 While That Person Was Ill? No [id number] Information not available 05/29/2022 How Many Years Have You Smoked Tobacco? 40 [id number].[id number] 026 Information not available 05/29/2022 Have You Recently Traveled Abroad? No [id number] Information not available 05/29/2022 Sex: Unknown [...] conjugate PCV 13 9 completed Not Available [facility] 10/16/2022 07:28:34 Past Encounters Encounter ID Performer Location Encounter Start Date Encounter Closed Date Diagnosis/Indication Diagnosis SNOMED-CT Code Diagnosis ICD10 Code Diagnosis Note [id number] [facility] Suzie mehta [facility] [place] [address] [address] 10/25/2020 00:00:00 10/25/2020 09:48:44 [id number] [facility] Suzie mehta [facility] [place] [address] 11/13/2020 00:00:00 11/13/2020 09:31:12 [id number] [facility] Suzie mehta [facility] [place] [address] 12/17/2021 00:00:00 12/17/2021 10:46:28 [id number] [facility] Suzie mehta [facility] [place] [address] 12/26/2021 00:00:00 12/26/2021 10:51:16 [id number] Melany Mathur MD [facility] Suzie mehta [address] [place] [address] [place] [address] 10/09/2022 14:50:12 10/09/2022 15:45:00 Injury of head 15382933 S09.90XA Sprain of right wrist 11 92066552 9521448 S63.501A continue gadiel wrap and NSAIDs and use ice [id number] XAVI Rock [facility] Suzie llharley [address] [place] [address] [place] [address] 09/03/2023 14:23:36 09/03/2023 15:19:10 Adult health examination 508932065 Z00.00 Screening for disorder 238991046 Z13.9 Screening for malignant neoplasm of breast 340369695 Z12.39 Mixed anxi ety and depressive disorder 884025226 F41.8 Fatigue 63119605 R53.83 Tendinitis of left wrist region 9766006167 9332298 M67.834 Anxiety 76642977 F41.9 Essential hypertension 46629767 I10 Gastroesop hageal reflux disease 891563573 K21.9 [id number] XAVI Rock [facility] [address] [place] [address] 01/26/2024 14:05:08 01/26/2024 15:21:19 Anxiety 56307926 F41.9 Essential hypertension 27669161 I10 Gastroesop hageal reflux disease 710020344 K21.9 Mixed anxi ety and depressive disorder 917654142 F41.8 Strain of left trapezius muscle 8102657415 2873450 S29.012A Steatosis of liver 01724 1007 K76.0 [id number] XAVI Rock [address] [address] 03/02/2024 15:05:48 03/02/2024 16:18:29 Fracture of right rib 7822917813 6376942 S22.31XA right fifth anterolate ral rib , mildly displaced Anxiety 00004785 F41.9 Essential hypertension 28420597 I10 Gastroesop hageal reflux disease 858241629 K21.9 [id number] XAVI Rock [address] [address] 03/17/2024 12:21:44 03/17/2024 13:54:52 Fracture of right rib 0057392636 5966441 S22.31XA right fifth anterolate ral rib , mildly displaced Anxiety 15419391 F41.9 Essential hypertension 02723897 I10 Gastroesop hageal reflux disease 314975826 K21.9 Hypertensi ve renal failure 63041588 I12.0 [id number] XAVI Rock [address] [address] 04/20/2024 12:21:42 04/20/2024 12:56:55 Gallstone 906402509 K80.20 Anxiety 42831012 F41.9 Essential hypertension 38530449 I10 Gastroesop hageal reflux disease 716316127 K21.9 Mixed anxi ety and depressive disorder 527064619 F41.8 Health Concerns Section Related Observation LastModified by Organization Detai ls LastModified Time None Recorded Concern Status LastModified by Organization Details LastModified Time None Recorded Advance Directives Directive None Recorded Payers Encounter Date Sequence Insurance Name Policy Number Policy Harris Covered Member ID Harris Member ID Guarantor Name 09/03/2023 1 [facility] (MEDICARE REPLACEMENT/A DVANTAGE - HMO) [id number] Maris Lennon [id number] Maris Lennon 01/26/2024 1 [facility] (MEDICARE REPLACEMENT/A DVANTAGE - HMO) [id number] Maris Lennon [id number] Maris Lennon 03/02/2024 1 [facility] (MEDICARE REPLACEMENT/A DVANTAGE - HMO) [id number] Maris Lennon [id number] Maris Lennon 03/17/2024 1 [facility] (MEDICARE REPLACEMENT/A DVANTAGE - HMO) [id number] Maris Lennon [id number] Maris Lennon 04/20/2024 1 [facility] (MEDICARE REPLACEMENT/A DVANTAGE - HMO) [id number] Maris Lennon [id number] Maris Lennon Notes Date Note Type Note Provider Name and Address Organization Details Recorded Time 09/03/2023 text/html left handed , an d it is cramping debbie at night . XAVI Rock [address], [place], [address], [facility] 09/04/2023 10:59:56 01/26/2024 text/html left upper back strain . XAVI Rock [address] [employer], [place], [address], [facility] 02/22/2024 16:42:01 03/02/2024 text/html cracked 5th rib on right [facility]I Rock [address], [place], [address], [facility] 03/13/2024 16:23:51 03/17/2024 text/html still hurts righ t rib lower [facility]AVI Rock [address], [place], [address], [facility] [employer] [facility] 04/03/2024 16:17:39 04/20/2024 text/html gallstones XAVI Rock [address], [place], [address], [facility] [employer] [facility] [employer] [facility] 04/23/2024 20:30:46 OBGyn Episode No OBEpisode recorded.
[2024-06-02] MEDS: LACTATED RINGERS 1,000 ML 30 ML IV CONT ×2 (06:45→09:25)
--- NOTE | 2024-06-02 06:46 | P.PNAN_ITS ---
Anes - Initial Pre Proc Eval Procedure: Operation Date: 06/02/24 07:30 Proposed Procedures p Laparoscopic Cholecystectomy - Jaden Shipley MD Date/Time: 06/02/24 06:46 Surgeon: Jaden Shipley MD Pre Op Diagnosis: chronic cholecystitis with cholelithiasis Patient Data Age: 74 Gender: F Height: 1.65 m Weight: 104 kg Allergies Allergy/AdvReac Type Severity Reaction Status Date / Time No Known Allergies Allergy Verified 06/02/24 06:41 Home Medications ?Medication ?Instructions ?Recorded ?Confirmed ?Type alprazolam 0.25 mg tablet 0.25 mg PO DIRECTED 02/24/24 06/02/24 History fluoxetine 20 mg capsule 20 mg PO DAILY 02/24/24 06/02/24 History fluoxetine 40 mg capsule 40 mg PO DAILY 02/24/24 06/02/24 History cetirizine 10 mg capsule (Zyrtec) 10 mg PO DAILY PRN allergy symptoms 05/20/24 06/02/24 History lisinopril 20 1 tablet PO DAILY 05/20/24 06/02/24 History mg-hydrochlorothiazide 25 mg tablet prednisone 20 mg tablet 10 mg PO DAILY 05/20/24 06/02/24 History Patient hx anesthesia problems: none Family hx anesthesia problems: none Results Review: All pre-operative results and documents have been reviewed as part of the pre- operative evaluation. [facility] Past Medical History Medical History Hypertension GERD (gastroesophageal reflux disease) Gallbladder disorder Allergies Anxiety and depression Surgical History Surgical History H/O tubal ligation 12/1975 Social History Social History Smoking packs per day: 1 Smoking cigarettes per day: 20.0 Years smoked: 50 Smoking pack-years: 50.00 Smoking status: Former smoker Tobacco type: cigarettes Smoking end date: 03/31/18 Alcohol intake: current Alcohol use details: 2 per month Substance use: never Substance use type: does not use Do You Feel Safe in your Home?: Yes Lack of Transportation: No Lack of Food: Never True Current Housing: I Have Housing Concerned About Future Housing: No Difficulty Paying Gas/Electric Bills: No Difficulty Paying for Meds: No Currently Unemployed: No Education: High School Diploma/GED Difficulty w/ Childcare or Family Care: No Living arrangements: alone Gender identity (if verbalized by the patient): Female Spiritual care concerns: No Anes - Eval Final PreProcedure Day of Procedure 06/02/24 06:46 Patient weight: obese Heart: regular rate and rhythm Lungs: clear to auscultation Airway: Mallampati scale class II Neurological: alert and oriented Last oral intake: >/= 8 hours ASA classification: III Emergent: no Anesthetic plan: proceed Anesthesia type and monitoring: general ETT and standard monitoring Results Review: All pre-operative results and documents have been reviewed as part of the pre- operative evaluation. Informed Consent: The patient's anesthetic plan and its attendant risks and benefits were discussed with the patient/family/POA. Questions were solicited and answers provided to the satisfaction of the patient/family/POA.
[2024-06-02] MEDS: KETOROLAC 15 MG/ML VIAL (*BKC) IV PUSH (07:01)
[2024-06-02] MEDS: ACETAMINOPHEN 500 MG TABLET 1000 MG PO (07:01)
--- NOTE | 2024-06-02 07:05 | WPDHPUPDATE1 ---
History and Physical Update Update Date/Time: 06/02/24 07:05 History and Physical has been reviewed, including an updated exam of the patient. There are NO changes in the patient's condition. Risks, benefits, and alternatives have been discussed and questions answered. Patient agrees to proceed with procedure.
[2024-06-02] MEDS: ceFAZolin 2 GM/D5W 50 ML 2 GM/50 ML BAG IVPB (07:28)
[2024-06-02] MEDS: BUPIVACAINE/EPINEPHRINE 0.5% 50 ML VIAL 30 ML INFILTRATE (07:53)
--- NOTE | 2024-06-02 09:42 | W.PM.PROC2 ---
Procedure Note - Detailed Date of Procedure 06/02/24 Pre-op Diagnosis chronic cholecystitis with cholelithiasis Post-op Diagnosis Same Procedure Performed Laparoscopic cholecystectomy Surgeon Jaden Shipley MD [employer] Anesthesia General and Local Indications Patient had a severe episode of right upper quadrant pain that radiated up her chest. CT scan showed acute cholecystitis and gallstones. She is taken to surgery now for laparoscopic cholecystectomy. Findings Chronic inflammation, many gallstones that were very large, no biliary ductal dilatation, fatty liver Description of Procedure Patient was taken to surgery and induced into general anesthesia. The abdomen is prepped and draped. Trocars were placed in the usual fashion using [employer] optical trocars and a 5 mm camera. The gallbladder was attempted to be decompressed but there were so many stones in the gallbladder and the gallbladder contents was very thick and only a little bit of gallbladder content could be removed. The contents did shows some dark blood. The gallbladder was then retracted anterosuperiorly. This was difficult as the wall of the gallbladder was friable and fragile and the patient has fatty liver was resistant to retracting the gallbladder. We were able to expose the triangle of Calot. Traction was placed on the infundibulum of the gallbladder. Dissection was then carried out in the cholecystohepatic triangle. The dissection was very bloody due to chronic inflammation and small vessel oozing. Even using cautery liberally for the dissection, there was a lot of oozing of blood. We persevered and eventually dissected out the cystic duct and cystic artery very clearly. We dissected the gallbladder off the liver over its lower 3rd. Critical view was achieved. The cystic duct and cystic artery were then securely clipped and divided. Dissection was then continued and the gallbladder was slowly freed from its remaining attachments to the liver. As I mentioned, the gallbladder was very difficult to grasp as it was friable and had many stones within it. Once the gallbladder was freed from the liver, we went ahead and cauterized some of the liver surface around the edges of the gallbladder for hemostasis. The gallbladder was then placed in an Endo-Catch bag. It was retrieved through the epigastric trocar site. However, there were such large stones in the gallbladder that we had to enlarge the skin incision and the fascial opening to accommodate the gallbladder. Eventually the gallbladder was able to be removed. I then initially tried using towel clips to occlude the skin and subcutaneous so that we could re-insufflated. This was not effective. I then partially closed the fascia with 0 Vicryl suture. The 10 11 trocar was replaced and towel clips were placed. Fortunately, we could at this time insufflated adequately even though there still was some CO2 leakage. The liver was retracted anterosuperiorly. Irrigation and suction were carried out in the gallbladder fossa. Some cautery was used on the gallbladder fossa. There was, however, some oozing of blood in the area of the cystic artery and its clip. The medial segment of the left lobe of the liver was impinging or view of this. A 5th trocar was placed in the left mid abdomen. We again retracted the liver as well as the medial segment of the left lobe of the liver and were then able to visualize the area adequately. Some cautery was used but due to the location, was reluctant to cauterize this thoroughly. I then used Surgiflo. This seemed to be adequate to take care of the oozing of blood. I again irrigated and suctioned the area thoroughly. We checked and recheck this area as well as the rest of the gallbladder fossa. All seemed quite hemostatic. There was no evidence of bile leakage either. We then evacuated CO2 and removed the trocar sleeves. I closed the rest of the fascia at the epigastric trocar site with [id number] mattress sutures of 0 Ethibond. The subcutaneous was closed with 3-0 Vicryl suture. The skin was closed at the epigastric trocar site with interrupted 3-0 Vicryl suture. The 4 other skin incisions were closed with running 4-0 Monocryl skin suture. The wounds were dressed with Exofin surgical adhesive. Patient was awakened and taken to recovery in good condition. Sponge and needle counts were correct x2. Estimated Blood Loss -100 Drains No Packing No Pathology Yes (Gallbladder) Complications None Condition Stable Disposition PACU [facility] Billing Surgery - Charge Forward: Surgery Billing (Laparoscopic cholecystectomy)
[2024-06-02] MEDS: fentaNYL CITRATE INJ (*CRX) 100 MCG/2 ML VIAL 25 MCG IV PUSH (09:56)
[2024-06-02] MEDS: oxyCODONE HCL (*CRX) 5 MG TAB IR PO (10:31)
[2024-06-02] MEDS: ONDANSETRON INJ 4 MG/2 ML VIAL IV PUSH (10:33)
== END 2024-06-02 11:46 | disposition home or self-care (01) ==
PROVIDERS: PCP Physician Assistant; Visit Provider Surgery
PROC: 0FT44ZZ Resection of Gallbladder, Percutaneous Endoscopic Approach (ICD-10-PCS; CPT 47562; principal; 2024-06-02 07:30)
DX: K80.10 Calculus of gallbladder with chronic cholecystitis without obstruction (principal); K76.0 Fatty (change of) liver, not elsewhere classified; Z87.891 Personal history of nicotine dependence; E66.9 Obesity, unspecified; Z68.31 Body mass index [BMI] 31.0-31.9, adult
CPT/HCPCS: 47562; 88304; A9270; J0690; J1100; J1885; J2405; J2704; J3010; J7030; J7120

== ENCOUNTER 2025-02-27 09:18 | Emergency (ER) | payer MEDICARE, SELFPAY ==
[2025-02-27 09:29] VITALS: BP 180/97; PULSE 75; RESP 16; TEMP 36; O2SAT 100
--- NOTE | 2025-02-27 09:47 | ED_ITS ---
HPI - Eye Problem General Chief complaint: Eye Problems Stated complaint: EYE REDNESS Time Seen by Provider: 02/27/25 09:34 Source: patient and RN notes reviewed Mode of arrival: ambulatory Limitations: no limitations History of Present Illness HPI Narrative: 74 year old female patient with history of hypertension, presents today with suspicion of right-sided pinkeye. States that she has had irritation around the right eye x2 days. States 2 days ago there was an area at the upper lash line that had a pimple that has since ruptured. She had some crusting at the lash line it yesterday and today with swelling of the upper eyelid. She has tried some cold compresses without much improvement. Patient wears glasses. Related Data Home Medications ?Medication ?Instructions ?Recorded ?Confirmed ?Last Taken ?Type alprazolam 0.25 mg tablet 0.25 mg PO DIRECTED 02/2302/27/25 06/01/24 History fluoxetine 20 mg capsule 20 mg PO DAILY 02/24/2401/3106/01/24 History fluoxetine 40 mg capsule 40 mg PO DAILY 02/24/2401/3106/01/24 History cetirizine 10 mg capsule (Zyrtec) 10 mg PO DAILY PRN a llergy symptoms 05/20/24 02/27/25 06/01/24 History lisinopril 20 1 tablet PO DAILY 05/20/24 1 04/29/24 06/01/24 History mg-hydrochlorothiazide 25 mg tablet prednisone 20 mg tablet 10 mg PO DAILY 05/20/2401/3106/01/24 History Allergies Allergy/AdvReac Type Severity Reaction Status Date / Time No Known Allergies Allergy Verified 02/27/25 09:30 [facility] Past Medical History Medical History Hypertension GERD (gastroesophageal reflux disease) Gallbladder disorder Allergies Anxiety and depression Surgical History Surgical History Hx laparoscopic cholecystectomy 06/02/[address] Shipley H/O tubal ligation 12/1975 Social History Social History Smoking packs per day: 1 Smoking cigarettes per day: 20.0 Years smoked: 50 Smoking pack-years: 50.00 Smoking status: Former smoker Tobacco type: cigarettes Smoking end date: 03/31/18 Alcohol intake: current Alcohol use details: 2 per month Substance use: never Substance use type: does not use Lack of Transportation: No Lack of Food: Never True Current Housing: I Have Housing Concerned About Future Housing: No Difficulty Paying Gas/Electric Bills: No Difficulty Paying for Meds: No Currently Unemployed: No Education: High School Diploma/GED Difficulty w/ Childcare or Family Care: No Living arrangements: alone Gender identity (if verbalized by the patient): Female Spiritual care concerns: No Comments At time of signature, I have reviewed and agree with nursing past medical, surgical, social and family history unless otherwise noted. Please see nursing chart for further information. There is no relevant family history pertinent to the presenting complaint Exam Narrative: GENERAL: Well-appearing, well-nourished, and in no acute distress. HEAD: Normocephalic, atraumatic. EYES: EOMI. PERRL. Conjunctivae normal bilateral. Moderate erythema and mild edema to the right upper eyelid with small palpable nodule to the lateral lash line. Tiny amount of green purulent discharge in the lateral canthus. Left eye normal. ENT: Mucous membranes pink and moist. NECK: Normal AROM. CHEST: No respiratory distress. EXTREMITIES: Normal range of motion. No edema. SKIN: Warm, dry. Capillary refill normal. Normal skin turgor. Patient has an erythematous papular rash over the nose and bilateral eyelids, patient states intermittent rosacea rash. NEURO: No focal deficits. Alert and oriented x3. Gait steady. PSYCH: Normal affect. No signs of depression or anxiety. Course Course Level of Care: Express Care Visit Vital Signs Vital signs: Vital Signs Temperature 96.8 F L 02/27/25 09:29 Pulse Rate 75 02/27/25 09:29 Respiratory Rate 16 02/27/25 09:29 Blood Pressure 180/97 H 02/27/25 09:29 Pulse Oximetry 100 02/27/25 09:29 Temperature 96.8 F L 02/27/25 09:29 Pulse Rate 75 02/27/25 09:29 Respiratory Rate 16 02/27/25 09:29 Blood Pressure 180/97 H 02/27/25 09:29 Pulse Oximetry 100 02/27/25 09:29 MDM - Eye Problem MDM Narrative Medical decision making narrative: 74 year old female patient with history of hypertension, presents today with suspicion of right-sided pinkeye. States that she has had irritation around the right eye x2 days. States 2 days ago there was an area at the upper lash line that had a pimple that has since ruptured. She had some crusting at the lash line it yesterday and today with swelling of the upper eyelid. She has tried some cold compresses without much improvement. Patient wears glasses. Upon exam, PERRL. Conjunctivae normal bilateral. Moderate erythema and mild edema to the right upper eyelid with small palpable nodule to the lateral lash line. Tiny amount of green purulent discharge in the lateral canthus. Left eye normal. Symptoms likely due to internal stye. Recommend frequent warm compresses to facilitate drainage. Will prescribe some antibiotic drops. Also recommend follow up with her eye doctor this week to ensure symptoms are improving. Patient agrees with plan. Follow up BP 153/85. Vital signs stable. Anticipatory guidance given. Differential Diagnosis Differential diagnosis: Likely corneal abrasion and conjunctivitis Critical Care Time Critical Care Time Critical Care Time: No Discharge Plan Discharge Clinical Impression: Hordeolum internum of right upper eyelid Patient Disposition: Home Condition: Stable Instructions: Stye (ED) Additional Instructions: Your symptoms are likely due to a stye in her right upper eyelid. Continue to do warm compresses to your eye. Use the eyedrops as directed. Please follow-up with an eye doctor this week to ensure proper healing. Patient Language: Chinese Prescriptions: New polymyxin B sulf-trimethoprim 10,000 unit- 1 mg/mL drops 1 drp RIGHT EYE QID 7 Days Qty: 10 0RF No Action fluoxetine 40 mg capsule 40 mg PO DAILY alprazolam 0.25 mg tablet 0.25 mg PO DIRECTED fluoxetine 20 mg capsule 20 mg PO DAILY prednisone 20 mg tablet 10 mg PO DAILY Zyrtec 10 mg capsule 10 mg PO DAILY PRN (Reason: allergy symptoms) lisinopril-hydrochlorothiazide 20-25 mg tablet 1 tablet PO DAILY ibuprofen 600 mg tablet 600 mg PO Q6H PRN (Reason: pain) Qty: 14 0RF Follow-up/Referrals: Migel,[place] D., [employer] [Primary Care Provider, Unknown] Stand Alone Forms: Work/School Release IP Time of Disposition: 09:46
[2025-02-27 09:50] VITALS: BP 153/85
== END 2025-02-27 09:50 | disposition home or self-care (01) ==
PROVIDERS: Emergency Provider Nurse Practitioner
DX: H00.021 Hordeolum internum right upper eyelid (principal); I10 Essential (primary) hypertension; K21.9 Gastro-esophageal reflux disease without esophagitis; F41.9 Anxiety disorder, unspecified; F32.A Depression, unspecified; Z87.891 Personal history of nicotine dependence
CPT/HCPCS: 99213; G0463